=== PATIENT | female | born 1955 | race Caucasian/White ===

== ENCOUNTER 2018-03-10 06:12 | Day surgery (SDC) | payer BC, SELFPAY ==
[2018-03-10 06:30] VITALS: BP 159/89; PULSE 78; RESP 16; TEMP 36.2; O2SAT 98
[2018-03-10] MEDS: Povidone-Iodine Soln. 118 ML BTL TP (06:54)
[2018-03-10] MEDS: Lactated Ringers 1,000 ML 80 ML IV (07:24)
[2018-03-10] MEDS: Lidocaine 1% Pres-Free 5 ML VIAL (07:41)
[2018-03-10] MEDS: Bupivacaine 0.5% Pres-Free 30 ML VIAL (07:41)
[2018-03-10] MEDS: Dexamethasone 4 MG/ML VIAL (08:46)
--- NOTE | 2018-03-10 08:55 | W.PM.DSUDISC ---
Discharge Plan Disposition Patient Disposition: HOME Condition: Good Discharge Details Reason For Visit: correction bunion and hammer toe left foot Attending Provider: Mario Gonzalez Primary Care Provider: Diony Poe Home Meds and New Rx's Prescriptions: No Action CBD oil 1 - 2 ea PO PRN RF: 0 ascorbic acid (vitamin C) [Vitamin C] 1,000 mg Tablet 1 g PO DAILY RF: 0 cholecalciferol (vitamin D3) [Vitamin D3] 2,000 unit Capsule 2,000 unit PO DAILY RF: 0 magnesium S-eirvdt-ylgxytmmwpp 42 mg (500 mg)- 250 mg Tablet Extended Release 1 tab PO DAILY RF: 0 Davinci Tri Mag 2 ea PO DAILY RF: 0 Bone Maximizer 2 ea PO DAILY RF: 0 Osteo Marcelino 2 ea PO DAILY RF: 0 Discharge Instructions Stand Alone Forms: Zully Instructions-DSU, David Muñoz (DSU) Equipment/Supplies: Partial Weight Bearing Crutches Activity:: Elevate Remove Dressings/Wound Care:: Do Not Remove Shower/Bathe:: Cover Diet:: As Tolerated DS: Diagnosis Discharge Diagnosis (1) Hallux valgus (acquired), left foot: Start date: 03/10/18 Start time: 08:55 Status: Acute Asessment and Plan: s/p niranjan type bunionectomy, arthroplasty 2nd toe all to the left foot (2) Hammer toe of second toe of left foot: Start date: 03/10/18 Start time: 08:56 Status: Acute Asessment and Plan: s/p arthroplasty with 0.045 K-wire
[2018-03-10] MEDS: Ibuprofen 600 MG TAB PO (09:24)
[2018-03-10 09:30] VITALS: BP 115/67; PULSE 70; RESP 14; TEMP 35.2; O2SAT 96
--- NOTE | 2018-03-10 09:51 | ROE_ITS ---
DATE OF PROCEDURE: March 10, 2018 PREOPERATIVE DIAGNOSES: 1. Symptomatic left hallux abductovalgus deformity. 2. Symptomatic left second hammertoe deformity. POSTOPERATIVE DIAGNOSES: Same. PROCEDURE: 1. Dwight-type bunionectomy; internal screw fixation 2.7 mm 16 and 18 mm in length. 2. Arthroplasty left second toe with a .045 K-Wire. SURGEON: Mario Gonzalez D.P.M. ANESTHESIA: Monitored Anesthesia Care with local block of the first and second rays utilizing a tota l of 9 cc's 0.5% Marcaine plain and 5 mg Lidocaine 1% plain. ANESTHESIA PROVIDER: Kay Ames CRNA OPERATIVE INDICATIONS: 62-year-old female with increasing pain associated with a left bunion and ham mertoe interfering with shoe gear, daily activities. She has tried wider shoes and various padding w ithout success. She is proceeding with surgical repair. She is aware of potential risks and complic ations pertaining to pain, scarring, infection, overcorrection, undercorrection, stiffness of the bunny nt, malunion, nonunion, delayed union of the osteotomy, difficulty with the hardware potentially requ iring revisional procedures. Informed consent has been obtained. No promises made to the final outc ome of surgery. REPORT OF OPERATION: Cristine was brought to the operative suite, placed in the supine position, where the left foot was prepped and draped in the usual sterile podiatric fashion. Anesthesia being obtai garrett, the left foot was exsanguinated and a well-padded ankle tourniquet inflated 250 mmHg. Attention was directed to the first MPJ where a 5 cm incision was made medial to the EHL tendon. The incision was deepened in controlled depth fashion; hemostasis acquired through electrocautery as nee ded. Dissection was carried down to the joint capsule. Significant lateral contracture of the joint is appreciated. With a #15 scalpel, a lateral capsulotomy, adductor tendon release, fibular sesamoi d mobilization was performed. Relaxation was appreciated. An inverted-L medial capsulotomy was perf ormed and the first metatarsal head delivered into the surgical wound. Significant degenerative roque ges are noted affecting the medial and medial dorsal aspect of the first metatarsal head and about 2 to 3 mm of the medial and medial dorsal aspect of the first metatarsal head. Otherwise the remaining cartilage appeared viable if not thin. With power instrumentation the medial hyperostosis and dorsa l hyperostosis was resected. Offset V-osteotomy was then performed through the first metatarsal head . The metatarsal head was manipulated, translocated laterally and impacted. Good correction of the deformity was noted. Fixation was achieved with two Synthes 2.7 cortical screws, 16 and 18 mm in hilario h. The medial shelf was resected. All rough and bony edges rasped smooth. Copious irrigation was performed. The medial capsule was repaired, after performing a medial capsulorrhaphy, with #3-0 Mike ryl. The subcutaneous layer was repaired with #3-0 Vicryl, then #4-0 Vicryl and the subcuticular lay er was closed with continuous running suture #4-0 Monocryl. Attention was now directed to the second toe, where two converging semi-elliptical incisions were prema juan dorsally over the PIPJ. A skin wedge was resected. Soft tissue mobilization was performed. A t ransverse tenotomy capsulotomy performed at the PIPJ level. With a #15 scalpel medial and lateral co llaterals were released and the head of the proximal phalanx delivered into the wound. Mild degenera tive changes of the head appreciated; hypertrophy noted. With double-action bone-cutting forceps the head was resected at its surgical neck. All rough and bony edges were rasped smooth. Kelikian pus h-up test revealed a rectus second toe. Irrigation was performed. The second toe was pinned with a .045 K-Wire in retrograde fashion. An extensor tendonorrhaphy was performed and the extensor tendon repaired end-to-end with #3-0 Vicryl. The skin was then closed with simple interrupted suture #4-0 N chellyon. Four milligrams of Dexamethasone Phosphate infused between the two wounds. Half-inch Steri-S trips over Mastisol was applied to the bunion incision; Xeroform applied; gauze fluff compression cory ssings applied. The tourniquet was released at 56 minutes with vascularity returning immediately to all toes. Cristine left the OR with vital signs stable, vascular status intact. She will be followed by me in the office next week. Sharp and sponge counts were correct. cc: Diony Poe M.D.
--- NOTE | 2018-03-10 10:39 | W.PM.DSUDISC ---
Discharge Plan Disposition Patient Disposition: HOME Condition: Good Discharge Details Reason For Visit: correction bunion and hammer toe left foot Attending Provider: Mario Gonzalez Primary Care Provider: Diony Poe Home Meds and New Rx's Prescriptions: Continued CBD oil 1 - 2 ea PO PRN RF: 0 ascorbic acid (vitamin C) [Vitamin C] 1,000 mg Tablet 1 g PO DAILY RF: 0 cholecalciferol (vitamin D3) [Vitamin D3] 2,000 unit Capsule 2,000 unit PO DAILY RF: 0 magnesium X-vhqpxu-cizdprpxvcm 42 mg (500 mg)- 250 mg Tablet Extended Release 1 tab PO DAILY RF: 0 Davinci Tri Mag 2 ea PO DAILY RF: 0 Bone Maximizer 2 ea PO DAILY RF: 0 Osteo Marcelino 2 ea PO DAILY RF: 0 No Action hydrocodone-acetaminophen [[place]] 5-325 mg Tablet 1 tab PO .Q4-6HR PRN (Reason: Pain) RF: 0 ibuprofen 600 mg Tablet 600 mg PO .Q6HR PRN (Reason: Pain) RF: 0 Discharge Instructions Stand Alone Forms: Zully Instructions-DSU, David Muñoz (DSU) Equipment/Supplies: Partial Weight Bearing Crutches Activity:: Elevate Remove Dressings/Wound Care:: Do Not Remove Shower/Bathe:: Cover Diet:: As Tolerated Discharge Orders Discharge Orders: Discharge Order (Routine); Ordered 03/10/18 Ordered By: Mario Gonzalez
--- NOTE | 2018-03-10 10:43 | PDOC.DSDIS_ITS ---
Discharge Plan Disposition Patient Disposition: HOME Condition: Good Discharge Details Reason For Visit: correction bunion and hammer toe left foot Attending Provider: Mario Gonzalez Primary Care Provider: Diony Poe Home Meds and New Rx's Prescriptions: Continued CBD oil 1 - 2 ea PO PRN RF: 0 ascorbic acid (vitamin C) [Vitamin C] 1,000 mg Tablet 1 g PO DAILY RF: 0 cholecalciferol (vitamin D3) [Vitamin D3] 2,000 unit Capsule 2,000 unit PO DAILY RF: 0 magnesium W-fvootw-izavhhvbhpm 42 mg (500 mg)- 250 mg Tablet Extended Release 1 tab PO DAILY RF: 0 Davinci Tri Mag 2 ea PO DAILY RF: 0 Bone Maximizer 2 ea PO DAILY RF: 0 Osteo Marcelino 2 ea PO DAILY RF: 0 No Action hydrocodone-acetaminophen [[place]] 5-325 mg Tablet 1 tab PO .Q4-6HR PRN (Reason: Pain) RF: 0 ibuprofen 600 mg Tablet 600 mg PO .Q6HR PRN (Reason: Pain) RF: 0 Discharge Instructions Stand Alone Forms: Zully Instructions-DSU, David Muñoz (DSU) Equipment/Supplies: Partial Weight Bearing Crutches Activity:: Elevate Remove Dressings/Wound Care:: Do Not Remove Shower/Bathe:: Cover Diet:: As Tolerated Discharge Orders Discharge Orders: Discharge Order (Routine); Ordered 03/10/18 Ordered By: Mario Gonzalez
== END 2018-03-10 10:25 | disposition home or self-care (01) ==
PROVIDERS: PCP Internal Medicine; Visit Provider Podiatrist
PROC: (CPT 28292; principal; 2018-03-10 07:30)
PROC: (CPT 28296; 2018-03-10 07:30)
DX: M20.12 Hallux valgus (acquired), left foot (principal); M20.42 Other hammer toe(s) (acquired), left foot; M21.612 Bunion of left foot; M25.572 Pain in left ankle and joints of left foot; I10 Essential (primary) hypertension; E66.9 Obesity, unspecified
CPT/HCPCS: 28296; 28285; E0114; J0690; J1100; J1885; J2405

== ENCOUNTER 2018-05-31 19:16 | Outpatient (REF) | payer BC, SELFPAY ==
[2018-05-31 19:26] LABS: Bilirubin Negative (Negative); Blood Negative (Negative); Clarity Clear; Glucose Negative (Negative); Ketones Negative (Negative); Leukocyte Esterase Negative (Negative); Nitrite Negative (Negative); Urobilinogen 0.2 EU/dL (Up TO 0.2)
== END 2018-05-31 19:36 ==
LOC: LBN 19:16
PROVIDERS: PCP Nurse Practitioner Family; Visit Provider Nurse Practitioner Family
DX: I10 Essential (primary) hypertension (principal)
CPT/HCPCS: 81003

== ENCOUNTER 2018-09-28 00:32 | Outpatient (CLI) | payer BC, SELFPAY ==
[2018-09-28 10:10] LABS: BUN 6 mg/dL (7-18); CREATININE 0.62 mg/dL (0.55-1.02); Calcium 9.2 mg/dL (8.5-10.1); Calculated LDL 81 mg/dL; Chloride 95 mmol/L (98-107); Cholesterol 190 mg/dL (50-200); Glucose 88 mg/dL (70-100); HDL Cholesterol 100 mg/dL (40-60); Potassium 4.3 mmol/L (3.5-5.1); Sodium 131 mmol/L (136-145); Triglyceride 46 mg/dL (30-150)
== END 2018-09-28 00:52 ==
PROVIDERS: PCP Nurse Practitioner Family; Visit Provider Nurse Practitioner Family
DX: E78.5 Hyperlipidemia, unspecified (principal); I10 Essential (primary) hypertension
CPT/HCPCS: 36415; 80048; 80061; 83721

== ENCOUNTER 2018-10-24 15:14 | Outpatient (CLI) | payer BC, SELFPAY ==
[2018-10-24 19:40] LABS: Sodium 128 mmol/L (136-145)
== END 2018-10-24 15:34 ==
PROVIDERS: PCP Nurse Practitioner Family; Visit Provider Nurse Practitioner Family
DX: E87.1 Hypo-osmolality and hyponatremia (principal)
CPT/HCPCS: 36415; 84295

== ENCOUNTER 2018-11-03 01:37 | Outpatient (CLI) | payer BC, SELFPAY ==
--- NOTE | 2018-11-03 15:09 | DI.MAMMO_ITS ---
EXAM: MG MAMMO SCREENING CLINICAL HISTORY: screening, Z12.39. TECHNIQUE: Mammograms were interpreted according to the usual protocol including computer analysis w ith CAD system, tomosynthesis and C-view imaging. COMPARISON: No exams were available for comparison FINDINGS: The breast tissue is heterogeneously radiodense, which lowers the sensitivity of the study. There ar e no suspicious calcifications or evidence of a dominant mass. Further assessment with a craniocauda d compression spot film of the left breast and ultrasound is recommended. IMPRESSION: This gets a category 0, breast density category 3
== END 2018-11-03 01:57 ==
PROVIDERS: PCP Nurse Practitioner Family; Visit Provider Nurse Practitioner Family
DX: Z12.31 Encounter for screening mammogram for malignant neoplasm of breast (principal); R92.8 Other abnormal and inconclusive findings on diagnostic imaging of breast
CPT/HCPCS: 36415; 77063; 77067; 84295

== ENCOUNTER 2018-11-13 10:39 | Outpatient (CLI) | payer BC, SELFPAY ==
[2018-11-13 12:49] LABS: Sodium 135 mmol/L (136-145)
== END 2018-11-13 10:59 ==
PROVIDERS: PCP Nurse Practitioner Family; Visit Provider Nurse Practitioner Family
DX: E87.1 Hypo-osmolality and hyponatremia (principal)
CPT/HCPCS: 84295

== ENCOUNTER 2018-11-21 01:35 | Outpatient (CLI) | payer BC, SELFPAY ==
--- NOTE | 2018-11-21 09:44 | DI.US_ITS ---
EXAM: LEFT BREAST ADDITIONAL VIEWS AND US BREAST LT LIMITED CLINICAL HISTORY: LT BREAST NEW AREA OF NODULARITY SEEN LATERALLY. TECHNIQUE: Mammograms were interpreted according to the usual protocol including computer analysis w [employer] CAD system, tomosynthesis and C-view imaging. COMPRESSION VIEWS TOMOGRAPHY WERE PERFORMED OF THE UPPER AND OUTER QUADRANT. Ultrasound performed using standard protocol. COMPARISON: Comparison is made with exams from 2013 through 2018. FINDINGS: There is persistence of circumscribed nodularity. There are no suspicious features or associated gege rocalcifications. Ultrasound shows a smoothly marginated hypoechoic nodule measuring 9 millimeters. There is a small f atty hilum. The findings are consistent with an intramammary lymph node. IMPRESSION: Category 2, negative mammogram with benign findings. Yearly screening mammography is recommended. BI-RADS Cat 2 - Benign Findings. Breast Density - Category C - Heterogeneously dense.
--- NOTE | 2018-11-21 21:31 | DI.MAMMO_ITS ---
EXAM: LEFT BREAST ADDITIONAL VIEWS AND US BREAST LT LIMITED CLINICAL HISTORY: LT BREAST NEW AREA OF NODULARITY SEEN LATERALLY. TECHNIQUE: Mammograms were interpreted according to the usual protocol including computer analysis w [employer] CAD system, tomosynthesis and C-view imaging. COMPRESSION VIEWS TOMOGRAPHY WERE PERFORMED OF THE UPPER AND OUTER QUADRANT. Ultrasound performed using standard protocol. COMPARISON: Comparison is made with exams from 2013 through 2018. FINDINGS: There is persistence of circumscribed nodularity. There are no suspicious features or associated gege rocalcifications. Ultrasound shows a smoothly marginated hypoechoic nodule measuring 9 millimeters. There is a small f atty hilum. The findings are consistent with an intramammary lymph node. IMPRESSION: Category 2, negative mammogram with benign findings. Yearly screening mammography is recommended. BI-RADS Cat 2 - Benign Findings. Breast Density - Category C - Heterogeneously dense.
== END 2018-11-21 01:55 ==
PROVIDERS: PCP Nurse Practitioner Family; Visit Provider Nurse Practitioner Family
DX: Z12.31 Encounter for screening mammogram for malignant neoplasm of breast (principal); R92.8 Other abnormal and inconclusive findings on diagnostic imaging of breast; N60.82 Other benign mammary dysplasias of left breast
CPT/HCPCS: 76642; 77063; 77067

== ENCOUNTER 2020-05-08 01:33 | Outpatient (CLI) | payer BC, SELFPAY ==
--- NOTE | 2020-05-08 16:19 | DI.MAMMO_ITS ---
EXAM: MG MAMMO SCREENING CLINICAL HISTORY: SCREENING, Z12.39. TECHNIQUE: Bilateral full field digital CC and MLO mammographic images were obtained with 3D tomosyn thesis and utilizing computer aided detection (CAD). COMPARISON: Prior mammograms dating back to 2010, the most recent being October 2018. Diagnostic images November 2018 also reviewed.. FINDINGS: Fibroglandular tissue is again noted be moderately dense, this decreasing the sensitivity mammogram f or finding hidden underlying lesions. Previously described nodule in the left breast is actually less evident on the present study. There are no new spiculated masses nor malignant-appearing microcalcification groups in either breast . There is no new architectural distortion or skin thickening-traction. IMPRESSION: Dense fibroglandular tissue. No obvious radiographic evidence of malignancy. BI-RADS Category 1 - Negative Breast Density - Category C - Heterogeneously dense Breast density Category C or D implies that the patient has dense breast tissue. Dense breast tissue can make it harder to find cancer on a mammogram. Dense breast tissue is also associated with an incr eased risk of breast cancer. This information about the result of the mammogram report was provided to the patient to raise their awareness. Use this report when you speak with the patient about their risks for breast cancer, which includes their family history. At that time, you may recommend additional screening tests (Ultrasoun d or MRI) as these tests may add significant information. A negative radiographic report should not delay biopsy if a dominant or clinically suspicious mass is present. Up to ten percent of cancers are not identified on mammography. A negative report may reinforce clinical impression. Adenosis and dense breasts may obscure an underlying neoplasm. False positive reports average 6 to 10%. Patient will receive a letter notifying them of these results.
== END 2020-05-08 01:53 ==
PROVIDERS: PCP Nurse Practitioner Family; Visit Provider Internal Medicine
DX: Z12.31 Encounter for screening mammogram for malignant neoplasm of breast (principal)
CPT/HCPCS: 77063; 77067

== ENCOUNTER 2021-11-11 10:10 | Outpatient (REF) | payer OTHER, SELFPAY ==
[2021-11-11 16:55] LABS: HGB 14.3 g/dL (11.2-15.7); MCH 32.1 pg (27.0-33.0); MCHC 35.8 % (32.0-36.0); MCV 90 fL (80-95); MPV 10.3 fL (8.0-11.0); Platelet Count 368 10^3/uL (130-400); RBC 4.45 10^6/uL (3.93-5.22); RDW 11.8 % (11.7-14.6); RDW-SD 38.9 fL; WBC 4.44 10^3/uL (4.4-10.8)
[2021-11-11 17:06] LABS: ALT 28 U/L (14-59); AST 24 U/L (15-37); Albumin 4.2 g/dL (3.4-5.0); Alkaline Phosphatase 95 U/L (46-116); Anion Gap 7.7 mmol/L (3-11); BUN 6 mg/dL (7-18); Bilirubin, Total 0.7 mg/dL (0.2-1.0); CO2 27.3 mmol/L (21.0-32.0); CREATININE 0.6 mg/dL (0.55-1.02); Calcium 9.6 mg/dL (8.5-10.1); Calculated LDL 84 mg/dL (<100); Chloride 89 mmol/L (98-107); Cholesterol 224 mg/dL (<200); Estimated GFR 97.71 (mL/min/1.73m2); Glucose 100 mg/dL (74-106); HDL Cholesterol 132 mg/dL (40-60); Potassium 5.2 mmol/L (3.5-5.1); Total Protein 7.8 g/dL (6.4-8.2); Triglyceride 44 mg/dL (<150)
[2021-11-11 17:26] LABS: Sodium 124 mmol/L (136-145)
== END 2021-11-11 10:11 | disposition home or self-care (01) ==
LOC: NCHCN 10:10
PROVIDERS: PCP Nurse Practitioner Family; Visit Provider Nurse Practitioner Family
DX: R03.0 Elevated blood-pressure reading, without diagnosis of hypertension (principal); E66.9 Obesity, unspecified
CPT/HCPCS: 80053; 80061; 85027

== ENCOUNTER 2021-11-12 15:15 | Outpatient (REF) | payer OTHER, SELFPAY ==
[2021-11-12 15:53] LABS: Sodium, Urine 6 mmol/L
[2021-11-12 21:44] LABS: Osmolality, Urine 234 mOsm/kg (150-1,150)
== END 2021-11-12 15:16 | disposition home or self-care (01) ==
LOC: NCHCN 15:15
PROVIDERS: PCP Nurse Practitioner Family; Visit Provider Nurse Practitioner Family
DX: E87.1 Hypo-osmolality and hyponatremia (principal)
CPT/HCPCS: 83935; 84300

== ENCOUNTER 2021-11-13 10:55 | Outpatient (REF) | payer OTHER, SELFPAY ==
[2021-11-13 08:15] LABS: Anion Gap 7.2 mmol/L (3-11); BUN 7 mg/dL (7-18); CO2 27.8 mmol/L (21.0-32.0); CREATININE 0.6 mg/dL (0.55-1.02); Calcium 9.5 mg/dL (8.5-10.1); Chloride 95 mmol/L (98-107); Estimated GFR 97.71 (mL/min/1.73m2); Glucose 118 mg/dL (74-106); Potassium 4.8 mmol/L (3.5-5.1); Sodium 130 mmol/L (136-145)
== END 2021-11-13 10:56 | disposition home or self-care (01) ==
LOC: NCHCN 10:55
PROVIDERS: PCP Nurse Practitioner Family; Visit Provider Nurse Practitioner Family
DX: E87.1 Hypo-osmolality and hyponatremia (principal)
CPT/HCPCS: 80048

== ENCOUNTER 2021-12-03 13:48 | Outpatient (REF) | payer OTHER, SELFPAY ==
[2021-12-03 15:47] LABS: ALT 19 U/L (14-59); AST 18 U/L (15-37); Albumin 4.2 g/dL (3.4-5.0); Alkaline Phosphatase 89 U/L (46-116); Anion Gap 10.4 mmol/L (3-11); BUN 9 mg/dL (7-18); Bilirubin, Total 0.7 mg/dL (0.2-1.0); CO2 26.6 mmol/L (21.0-32.0); CREATININE 0.7 mg/dL (0.55-1.02); Calcium 9.4 mg/dL (8.5-10.1); Chloride 98 mmol/L (98-107); Estimated GFR 94.15 (mL/min/1.73m2); FREE T4 0.92 ng/dL (0.76-1.46); Glucose 94 mg/dL (74-106); Potassium 4.6 mmol/L (3.5-5.1); Sodium 135 mmol/L (136-145); TSH 0.66 uIU/mL (0.36-3.74); Total Protein 7.5 g/dL (6.4-8.2)
== END 2021-12-03 13:49 | disposition home or self-care (01) ==
LOC: NCHCN 13:48
PROVIDERS: PCP Nurse Practitioner Family; Visit Provider Internal Medicine
DX: R03.0 Elevated blood-pressure reading, without diagnosis of hypertension (principal); E87.1 Hypo-osmolality and hyponatremia; I79.0 Aneurysm of aorta in diseases classified elsewhere
CPT/HCPCS: 80053; 84439; 84443

== ENCOUNTER → 2021-12-09 01:58 | Outpatient (CLI) | payer OTHER, SELFPAY ==
--- NOTE | 2021-12-09 | DI.MAMMO_ITS ---
Exam(s) MAMMO SCREENING EXAM: MAMMO SCREENING CLINICAL HISTORY: SCREENING, Z12.39 TECHNIQUE: Bilateral full field digital CC and MLO mammographic images were obtained with 3D tomosyn thesis and utilizing computer aided detection (CAD). COMPARISON: Available for comparison. FINDINGS: Masses/Architectural Distortion: None seen. Microcalcifications: No suspicious pleomorphic-type are seen. Skin Thickening/Nipple Retraction: None. IMPRESSION: 1. No significant interval change with no specific features of malignancy noted. 2. Unless there is more urgent need, screening mammography is recommended, as per [employer] guidelines. BI-RADS Category 1 - Negative Breast Density - Category C - Heterogeneously dense Breast density category C or D implies that the patient has dense breast tissue. Dense breast tissue is very common and is not abnormal but dense breast tissue can make it harder to find cancer on a ma mmogram. Also, dense breast tissue may increase their breast cancer risk. This information about the result of the mammogram report was provided to the patient to raise their awareness. Use this report when you speak with the patient about their risks for breast cancer, which includes their family hist ory. At that time, you may recommend for more screening tests (Ultrasound or MRI) as they might be us eful based on their risk. A negative radiographic report should not delay biopsy if a dominant or clinically suspicious mass is present. Up to ten percent of cancers are not identified on mammography. A negative report may reinforce clinical impression. Adenosis and dense breasts may obscure an underlying neoplasm. False positive reports average 6 to 10%. Patient will receive a letter notifying them of these results.
== END ==
PROVIDERS: PCP Nurse Practitioner Family; Visit Provider Nurse Practitioner Family
DX: Z12.31 Encounter for screening mammogram for malignant neoplasm of breast (principal); R92.8 Other abnormal and inconclusive findings on diagnostic imaging of breast
CPT/HCPCS: 77063; 77067

== ENCOUNTER 2022-01-27 13:44 | Emergency (ER) | payer OTHER, SELFPAY ==
[2022-01-27 13:59] VITALS: BP 186/66; PULSE 76; RESP 18; TEMP 37.7; O2SAT 99
--- NOTE | 2022-01-27 14:15 | DI.RAD_ITS ---
Exam(s) XR SHOULDER LT COMPLETE 2+V EXAM: XR SHOULDER LT COMPLETE 2+V CLINICAL HISTORY: trauma. TECHNIQUE: 2D digital imaging was performed of the left shoulder. Four images were obtained. AP, G rashey, Y-view and axillary views were obtained. COMPARISON: No exams were available for comparison FINDINGS: BONES: There is an acute comminuted fracture of the proximal left humerus. The fracture involves the surgical neck with extension proximally involving the greater tuberosity. The fracture shows minima l displacement particularly the greater tuberosity component. No bony destructive lesion is seen. JOINTS: No dislocation present. Mild degenerative changes are seen at the acromioclavicular joint. SOFT TISSUE: Normal. IMPRESSION: Comminuted mildly displaced fracture involving the proximal humerus as described above. DATA REPOSITORY: RADIATION DOSE DELIVERED:
--- NOTE | 2022-01-27 16:16 | W.ED.GENAD ---
Discharge Plan Disposition Patient Disposition: Home Condition: Stable Discharge Details Chief Complaint: Orthopedic Clinical Impression: Fracture of proximal humerus Primary Care Provider: Serenity Amezquita ED Provider: Chava Herrera Home Meds and New Rx's Prescriptions: No Action vitamin K2 40 mcg tablet 100 mcg PO DAILY Label Comments: MK-7 Shingrix (PF) 50 mcg/0.5 mL suspension for reconstitution 50 mcg IM .COMPLEX Qty: 1 1RF Rx Instructions: 50 mcg IM administered as a 2-dose series at 0 and 2 to 6 months vitamins B1 B6 B12 Liquid 5 ml PO DAILY amlodipine 5 mg tablet 5 mg PO DAILY Qty: 90 3RF lisinopril 10 mg tablet 10 mg PO DAILY Qty: 90 3RF ascorbic acid (vitamin C) [Vitamin C] 1,000 mg Tablet 1 g PO DAILY cholecalciferol (vitamin D3) [Vitamin D3] 2,000 unit Capsule 2,000 unit PO DAILY Davinci Tri Mag 2 ea PO DAILY Discharge Instructions Instructions: Proximal Humerus Fracture (ED) Additional Instructions: Please follow-up with orthopedic surgical team. Please use sling as instructed. Please return to the emergency department for any worsening symptoms. Medical Decision Making 66-year-old female presents after mechanical fall from standing, fell on the left side, pain to left shoulder, no other injuries, holding left upper extremity abducted to side, range of motion of shoulder limited by pain, no skin tenting or external signs of trauma, no deformity, neurovascular exam of limb intact, strong radial pulse, median radial and ulnar nerve distribution sensory exam intact, flexion extension of fingers intact, flexion extension of wrist intact, flexion and extension at elbow intact, warm well perfused extremity. Evidence of proximal humeral fracture on x-ray. Will place patient in sling. We will control pain with anti-inflammatory/analgesia. Patient be given close follow-up with orthopedic surgery. Home care instructions given. HPI General Date/Time Provider Initiated Documentation: 01/27/22 15:42. HPI Narrative: 66-year-old female presents after fall on ice on her left side, pain to her left shoulder. No other injuries. Related Data Home Medications Medication Instructions Recorded Confirmed Davinci Tri Mag 2 ea PO DAILY 03/09/18 05/31/18 ascorbic acid (vitamin C) 1,000 mg 1 g PO DAILY 03/09/18 05/31/18 tablet (Vitamin C) cholecalciferol (vitamin D3) 50 2,000 unit PO DAILY 03/09/18 05/31/18 mcg (2,000 unit) capsule (Vitamin D3) vitamin K2 40 mcg tablet 100 mcg PO DAILY 04/28/18 05/31/18 amlodipine 5 mg tablet 5 mg PO DAILY #90 tab-caps 10/09/18 10/09/18 vitamins B1 B6 B12 oral liquid 5 ml PO DAILY 10/09/18 lisinopril 10 mg tablet 10 mg PO DAILY #90 tab-caps 11/06/18 varicella-zoster glycoE [id number] 50 mcg IM .COMPLEX #1 ea 11/13/18 11/13/18 adj(PF) 50 mcg/0.5 mL IM susp, kit (Shingrix (PF)) Previous Rx's Medication Instructions Recorded amlodipine 5 mg tablet 5 mg PO DAILY #90 tab-caps 10/09/18 lisinopril 10 mg tablet 10 mg PO DAILY #90 tab-caps 11/06/18 varicella-zoster glycoE [id number] 50 mcg IM .COMPLEX #1 ea 11/13/18 adj(PF) 50 mcg/0.5 mL IM susp, kit (Shingrix (PF)) Allergies Allergy/AdvReac Type Severity Reaction Status Date / Time No Known Allergies Allergy Unverified 01/27/22 14:18 General Stated Complaint: Orthopedic HARSH: 4 Review of Systems Narrative: Review of Systems Constitutional: negative Eyes: negative ENT: negative Cardiovascular: negative Respiratory: negative Gastrointestinal: negative : negative Musculoskeletal: Shoulder pain Skin: negative Neurologic: negative Psych: negative PFSH All Active Problems (Updated 01/27/22 @ 16:22 by Chava Herrera MD) Fracture of proximal humerus (Acute) Hyperlipidemia, unspecified (Chronic) 09/2018 labs: 10-year ASCVD risk = ~6.7% --> no statin indicated at this time Immunization not carried out because of patient refusal (Chronic) Osteoporosis (Chronic) Pt declines Rx treatment Anxiety disorder (Chronic) Hypertension (Chronic) Medical History (Updated 01/27/22 @ 16:22 by Chava Herrera MD) Hammer toe of second toe of left foot S/p bunionectomy 02/2018 Surgical History meniscus repair Status post bunionectomy (~03/10/18) 03/10/2018: left Family History Sister Breast cancer Osteoporosis Brother High cholesterol Brother Brain cancer Father Malignant neoplasm metastatic to kidney Hypertension Social History Smoking/Tobacco Use Status: Never Smoking risk assessment performed?: Yes Alcohol Intake: current Alcohol Intake frequency: a few times a week Drug use: Never Substance use type: does not use Adopted: No Caregiver/Support person: No Foster care: No Household members: spouse Housing: house Communication Needs: None Do you need help understanding health information?: Rarely 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 Pets and animals: No Sexually active: Yes Do you think of yourself as: straight/heterosexual Current gender identity: female Other: 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 What is your relationship status?: How often do you talk on the phone with friends or family?: three or more times per week How often do you get together with friends or relatives?: three or more times per week How often do you attend yarsani or restoration services?: 1-3 times per year Do you belong to any clubs or organized social groups?: no Panel score (0-1 are the most socially isolated patients): 2 What type of physical activity do you participate in: walking Duration: 45-60 minutes/day Frequency: daily Jenifer/Mandaeism: Baptism Special jenifer needs: No Agree to transfusion: Yes Seatbelt use: always Helmet use: Yes Drive intox or ride w/intox 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 driver: No Water heater temp set <120 deg: Yes Working smoke detector in home: Yes Fire extinguisher in home: Yes Carbon monox detector in home: No (Getting new one) Firearms in home: Yes Firearms unloaded and locked: Yes Do you feel safe at home: Yes Do you feel safe in your relationship?: Yes Victim of physical abuse: No Victim of emotional abuse: No Victim of sexual abuse: No Would you like helpful sources: No Additional Social history: VEGAN diet Female Reproductive History Menstrual Menopause type: natural Exam Narrative Exam Narrative: Physical Examination General: alert, awake, cooperative, resting comfortably, no acute distress HEENT: normocephalic, atraumatic; PERRL, EOM intact, conjunctiva normal; no nasal discharge; moist mucous membranes, oral and pharyngeal mucosa normal, tolerating secretions Neck: supple, trachea midline; full ROM Chest: normal to inspection Respiratory: normal respiratory effort, speaking in full sentences, clear to auscultation, no wheezing, rales or rhonchi Cardiac: regular rate, regular rhythm, S1S2 intact, no murmurs rubs or gallops GI: abdomen soft, non-tender, non-distended; no palpable mass or hepatosplenomegaly Skin: no lesions, rashes or trauma appreciated Neuro: AAOx3, normal speech, moving all extremities Extremities: Holding left upper extremity abducted to side, decreased range of motion at shoulder due to pain, no palpable deformity, no skin tenting, patient has strong radial pulse, median radial and ulnar nerve distribution sensory exam intact, range of motion at elbow wrist and hand intact with full strength Psych: Appropriate mood and affect Course Vital Signs Vital signs: Vital Signs Temperature 37.7 C H 01/27/22 13:59 Pulse 76 01/27/22 13:59 Respiratory Rate 18 01/27/22 13:59 Blood Pressure 186/66 H 01/27/22 13:59 Pulse Oximetry 99 01/27/22 13:59 Temperature 37.7 C H 01/27/22 13:59 Temperature Source Temporal Artery Scan 01/27/22 13:59 Pulse 76 01/27/22 13:59 Respiratory Rate 18 01/27/22 13:59 Respiratory Effort Non-Labored 01/27/22 14:15 Blood Pressure 186/66 H 01/27/22 13:59 Blood Pressure Position Sitting 01/27/22 13:59 Pulse Oximetry 99 01/27/22 13:59 Oxygen Delivery Method Room Air 01/27/22 13:59 Oxygen Flow Rate 0 01/27/22 13:59 Pain Level 7 01/27/22 13:59
[2022-01-27] MEDS: Acetaminophen 325 MG TAB 650 MG PO (16:39)
[2022-01-27] MEDS: Ketorolac 15 MG/ML VIAL IM (16:40)
[2022-01-27] MEDS: oxyCODONE 5 mg/Acetaminophen 325 mg TAB 2 TAB PO (17:06)
== END 2022-01-27 17:10 | disposition home or self-care (01) ==
PROVIDERS: Emergency Provider Emergency Medicine; PCP Family Medicine
DX: S42.202A Unspecified fracture of upper end of left humerus, initial encounter for closed fracture (principal); W00.9XXA Unspecified fall due to ice and snow, initial encounter
CPT/HCPCS: 96372; 99284; 73030; J1885

== ENCOUNTER 2022-02-02 09:33 | Outpatient (CLI) | payer OTHER, SELFPAY ==
--- NOTE | 2022-02-02 09:30 | DI.RAD_ITS ---
Exam(s) XR SHOULDER LT COMPLETE 2+V EXAM: XR SHOULDER LT COMPLETE 2+V CLINICAL HISTORY: left proximal humerus fx f/u. TECHNIQUE: 2D digital imaging was performed. COMPARISON: X-ray 01/27/2022 FINDINGS: Two views: Again noted is a previously described humeral head fracture which also involves the greater tuberosit y. There is no further displacement. Appearance is unchanged from 01/27/2022. No additional fractu res evident. IMPRESSION: No change from 01/27/2022. DATA REPOSITORY: RADIATION DOSE DELIVERED:
== END 2022-02-02 09:34 | disposition home or self-care (01) ==
LOC: DIORS 09:34
PROVIDERS: PCP Family Medicine; Referring Provider Family Medicine; Visit Provider Student in an Organized Health Care Education/Training Program
DX: S42.202D Unspecified fracture of upper end of left humerus, subsequent encounter for fracture with routine healing (principal); X58.XXXD Exposure to other specified factors, subsequent encounter
CPT/HCPCS: 73030

== ENCOUNTER 2022-02-16 09:53 | Outpatient (CLI) | payer OTHER, SELFPAY ==
--- NOTE | 2022-02-16 09:30 | DI.RAD_ITS ---
Exam(s) XR SHOULDER LT COMPLETE 2+V EXAM: XR SHOULDER LT COMPLETE 2+V CLINICAL HISTORY: left humerus fx f/u. TECHNIQUE: 2D digital imaging was performed. COMPARISON: CR XR SHOULDER LT COMPLETE 2+V from 02/02/2022 FINDINGS: Three views: There is continued unchanged appearance of the humeral head-neck fracture site which also involves th e greater tuberosity. Fracture lines are still evident but there is no further displacement of the f racture fragments. No dislocation of the glenohumeral joint. AC joint intact. IMPRESSION: DATA REPOSITORY: RADIATION DOSE DELIVERED:
== END 2022-02-16 09:54 | disposition home or self-care (01) ==
LOC: DIORS 09:54
PROVIDERS: PCP Family Medicine; Referring Provider Family Medicine; Visit Provider Student in an Organized Health Care Education/Training Program
DX: S42.292D Other displaced fracture of upper end of left humerus, subsequent encounter for fracture with routine healing; X58.XXXD Exposure to other specified factors, subsequent encounter
CPT/HCPCS: 73030

== ENCOUNTER 2022-03-09 13:24 | Outpatient (CLI) | payer OTHER, SELFPAY ==
--- NOTE | 2022-03-09 13:15 | DI.RAD_ITS ---
Exam(s) XR SHOULDER LT COMPLETE 2+V EXAM: XR SHOULDER LT COMPLETE 2+V CLINICAL HISTORY: left humerus fx f/u. TECHNIQUE: 2D digital imaging was performed. COMPARISON: CR XR SHOULDER LT COMPLETE 2+V from 02/16/2022 FINDINGS: Two views Again noted is the described humeral head-neck fracture which also involves the greater tuberosity. No further displacement. No further impaction. Glenohumeral joint not dislocated. IMPRESSION: Stable appearance with some mild further healing. DATA REPOSITORY: RADIATION DOSE DELIVERED:
== END 2022-03-09 13:25 | disposition home or self-care (01) ==
LOC: DIORS 13:24
PROVIDERS: PCP Family Medicine; Referring Provider Family Medicine; Visit Provider Student in an Organized Health Care Education/Training Program
DX: S42.292D Other displaced fracture of upper end of left humerus, subsequent encounter for fracture with routine healing (principal); X58.XXXD Exposure to other specified factors, subsequent encounter
CPT/HCPCS: 73030

== ENCOUNTER 2022-04-27 13:38 | Outpatient (CLI) | payer OTHER, SELFPAY ==
--- NOTE | 2022-04-27 13:00 | DI.RAD_ITS ---
Exam(s) XR SHOULDER LT COMPLETE 2+V EXAM: XR SHOULDER LT COMPLETE 2+V INDICATION: humerus fx f/u. COMPARISON: CR XR SHOULDER LT COMPLETE 2+V from 02/16/2022 CR XR SHOULDER LT COMPLETE 2+V from 03/09/2022 TECHNIQUE: 2D digital imaging was performed. Two views. FINDINGS: There has been continued healing of the previously noted humeral head fracture. No new abnormalities are seen. DATA REPOSITORY: RADIATION DOSE DELIVERED:
== END 2022-04-27 13:39 | disposition home or self-care (01) ==
LOC: DIORS 13:38
PROVIDERS: PCP Family Medicine; Referring Provider Family Medicine; Visit Provider Student in an Organized Health Care Education/Training Program
DX: S42.292D Other displaced fracture of upper end of left humerus, subsequent encounter for fracture with routine healing (principal); X58.XXXD Exposure to other specified factors, subsequent encounter
CPT/HCPCS: 73030

== ENCOUNTER 2022-10-05 15:21 | Outpatient (REF) | payer OTHER, SELFPAY ==
[2022-10-05 21:08] LABS: Anion Gap 8.3 mmol/L (3-11); BUN 9 mg/dL (7-18); CO2 27.7 mmol/L (21.0-32.0); CREATININE 0.6 mg/dL (0.55-1.02); Calcium 9.3 mg/dL (8.5-10.1); Chloride 94 mmol/L (98-107); Glucose 155 mg/dL (74-106); Potassium 4.5 mmol/L (3.5-5.1); Sodium 130 mmol/L (136-145)
== END 2022-10-05 15:22 | disposition home or self-care (01) ==
LOC: NCHCN 15:21
PROVIDERS: PCP Family Medicine; Visit Provider Internal Medicine
DX: R03.0 Elevated blood-pressure reading, without diagnosis of hypertension (principal); E87.1 Hypo-osmolality and hyponatremia; R42 Dizziness and giddiness; M81.0 Age-related osteoporosis without current pathological fracture
CPT/HCPCS: 80048

== ENCOUNTER 2022-10-14 01:24 | Outpatient (RCR) | payer OTHER, SELFPAY ==
[2022-10-14] MEDS: Normal Saline Flush 10 ML SYR IVP (07:18)
[2022-10-14] MEDS: Cosyntropin 0.25 MG VIAL IVP (07:18)
[2022-10-14 20:31] LABS: Cortisol (Baseline) 17 ug/dL (4-23)
== END 2022-10-14 23:59 | disposition home or self-care (01) ==
LOC: INF 01:24
PROVIDERS: PCP Family Medicine; Visit Provider Internal Medicine
DX: E87.1 Hypo-osmolality and hyponatremia (principal)
CPT/HCPCS: 36415; 80400; 96374; J0834

== ENCOUNTER 2022-12-23 18:37 | Outpatient (CLI) | payer OTHER, SELFPAY ==
--- NOTE | 2022-12-23 13:41 | DI.RAD_ITS ---
Exam(s) XR HAND RT LIMITED EXAM: XR HAND RT LIMITED INDICATION: RIGHT HAND PAIN. COMPARISON: DX Hand, Min Of Three Views Right from 12/15/2022 TECHNIQUE: 2D digital imaging was performed. Two views. FINDINGS: There has been no change in the alignment of the distal 5th metacarpal fracture. No new abnormalitie s are seen. DATA REPOSITORY: RADIATION DOSE DELIVERED:
== END 2022-12-23 18:38 | disposition home or self-care (01) ==
LOC: DIORS 18:38
PROVIDERS: PCP Family Medicine; Visit Provider Physician Assistant
DX: S62.306D Unspecified fracture of fifth metacarpal bone, right hand, subsequent encounter for fracture with routine healing (principal); X58.XXXD Exposure to other specified factors, subsequent encounter
CPT/HCPCS: 73120

== ENCOUNTER → 2022-12-29 01:19 | Outpatient (CLI) | payer OTHER, SELFPAY ==
--- NOTE | 2022-12-29 14:18 | DI.MAMMO_ITS ---
Exam(s) MAMMO SCREENING EXAM: MAMMO SCREENING CLINICAL HISTORY: SCREENING, Z12.39. TECHNIQUE: Bilateral full field digital CC and MLO mammographic images were obtained with 3D tomosyn thesis and utilizing computer aided detection (CAD). COMPARISON: Prior mammograms were reviewed. FINDINGS: There has been no significant change in the appearance and distribution of the fibroglandular tissue. There are no new spiculated masses nor malignant appearing microcalcification groups. There is no significant architectural distortion nor skin thickening-retraction. IMPRESSION: No radiographic evidence of malignancy. BI-RADS Category 1 - Negative Breast Density - Category C - Heterogeneously dense Breast density Category C or D implies that the patient has dense breast tissue. Dense breast tissue can make it harder to find cancer on a mammogram. Dense breast tissue is also associated with an incr eased risk of breast cancer. This information about the result of the mammogram report was provided to the patient to raise their awareness. Use this report when you speak with the patient about their risks for breast cancer, which includes their family history. At that time, you may recommend additional screening tests (Ultrasoun d or MRI) as these tests may add significant information. A negative radiographic report should not delay biopsy if a dominant or clinically suspicious mass is present. Up to ten percent of cancers are not identified on mammography. A negative report may reinforce clinical impression. Adenosis and dense breasts may obscure an underlying neoplasm. False positive reports average 6 to 10%. Patient will receive a letter notifying them of these results.
== END ==
PROVIDERS: PCP Family Medicine; Visit Provider Internal Medicine
DX: Z12.31 Encounter for screening mammogram for malignant neoplasm of breast (principal)
CPT/HCPCS: 77063; 77067

== ENCOUNTER 2023-01-05 11:02 | Outpatient (CLI) | payer OTHER, SELFPAY ==
--- NOTE | 2023-01-05 10:45 | DI.RAD_ITS ---
Exam(s) XR HAND RT COMPLETE EXAM: XR HAND RT COMPLETE CLINICAL HISTORY: right hand fx f/u. TECHNIQUE: 2D digital imaging was performed. Three views. COMPARISON: CR XR HAND RT LIMITED from 12/23/2022 FINDINGS: There has been no change in the alignment of the distal 5th metacarpal fracture. DATA REPOSITORY: RADIATION DOSE DELIVERED:
== END 2023-01-05 11:03 | disposition home or self-care (01) ==
LOC: DIORS 11:02
PROVIDERS: PCP Family Medicine; Visit Provider Student in an Organized Health Care Education/Training Program
DX: S62.356D Nondisplaced fracture of shaft of fifth metacarpal bone, right hand, subsequent encounter for fracture with routine healing (principal); X58.XXXD Exposure to other specified factors, subsequent encounter
CPT/HCPCS: 73130

== ENCOUNTER 2023-02-09 10:24 | Outpatient (CLI) | payer OTHER, SELFPAY ==
--- NOTE | 2023-02-09 09:45 | DI.RAD_ITS ---
Exam(s) XR HAND RT COMPLETE EXAM: XR HAND RT COMPLETE CLINICAL HISTORY: f/u 5TH METACARPAL FX. TECHNIQUE: 2D digital imaging was performed. Three views. COMPARISON: CR XR HAND RT COMPLETE from 01/05/2023 FINDINGS: BONES: There has been no change in the alignment of the 5th metacarpal fracture. No bony destructive lesion is seen. JOINTS: No dislocation present. SOFT TISSUE: Normal. IMPRESSION: Stable alignment of 5th metacarpal fracture. DATA REPOSITORY: RADIATION DOSE DELIVERED:
== END 2023-02-09 10:25 | disposition home or self-care (01) ==
LOC: DIORS 10:24
PROVIDERS: PCP Family Medicine; Referring Provider Family Medicine; Visit Provider Physician Assistant
DX: S62.356A Nondisplaced fracture of shaft of fifth metacarpal bone, right hand, initial encounter for closed fracture (principal); X58.XXXA Exposure to other specified factors, initial encounter
CPT/HCPCS: 73130

== ENCOUNTER 2023-10-06 08:30 | Outpatient (REF) | payer OTHER, SELFPAY ==
--- OUTSIDE RECORDS SUMMARY | 2023-10-06 08:32 | XMS_ITS | Encounter Summary ---
[facility] [place] [id number] Care Team Providers Care Composing Machine Operator/Tender Name Role Phone Unavailable Primary Care Provider Unavailabl e Encounter Details Date Type Department Care Team (Late st Contact Info) Description 11/20/2020 12:00 PM EDT - 11/20/2020 11:59 PM EDT Hospital Encounter [facility] [address] [place] [phone] Derrick Godinez, DO [address] [place] [phone] Discharge Disposition: Home Social History Tobacco Use Types Packs/Day Years Used Date Smoking Tobacco: Never Assessed Sex and Gender Information Value Date Recorded Sex Assigned at Not on file Gender Identity Not on file Sexual Orientation Not on file documented as of this encounter Plan of Treatment Not on file documented as of this encounter Procedures Procedure Name Priority Date/Time Associated Diagnosis Comments COVID-19 PCR Routine 11/20/2020 10:00 AM EDT documented in this encounter Results * COVID-19 PCR (11/20/2020 10:00 AM EDT) SARS-CoV-2 RNA Not Detected Not Detected [facility] Comment: This result should be interpreted in combination with the clinical observations, patient history and epidemiological information. For testing of asymptomatic individuals, assay performance characteristics and clinical utility have not been evaluated. Testing for SARS-CoV-2 (Severe acute respiratory syndrome coronavirus 2, formerly known as 2019 novel coronavirus or 2019-nCoV) to aid in the diagnosis of COVID-19 is performed using the Aptima SARS Co-V-2 Assay on the Smartling System ([employer] as authorized by the FDA issued Emergency Use Authorization (EUA). This assay is intended for In-vitro Diagnostic (IVD) use with nasopharyngeal swabs collected from individuals meeting the CDC criteria for testing. The assay is performed based on the instructions for use and additional guidance provided by the FDA. Testing is performed in the Microbiology Laboratory within the Department of Pathology and Laboratory Medicine at [facility], certified under the Clinical Laboratory Improvement Amendments of 1988 (CLIA), 42 U.S.C. section 263a, to perform high-complexity tests. Assay performance has been verified according to clinical laboratory regulatory requirements. Test results are provided above. A result of Not Detected indicates that the viral RNA target is not present but does not preclude SARS-CoV-2 infection. False negative results may occur if a specimen is improperly collected, transported or handled; if amplification inhibitors are present; or if inadequate numbers of viral particles are present in the specimen. A result of Detected suggests a current or recent infection and the patient is presumed to be infected. Positive and negative predictive values for this test are highly dependent on disease prevalence. A result of Invalid indicates the inability to conclusively determine the presence or absence of SARS-CoV-2 RNA in the sample which can be due to a variety of factors. ??Collection of a new sample for repeat testing is recommended in the case of an invalid result. CDC COVID-19 criteria for testing on human specimens and clinical management guidance information are available at the CDC Coronavirus Disease 2019 (COVID-19) webpage under Information for Healthcare Professionals (https://www.cdc.gov/coronavirus/2019-ncov/hcp/index.html). Additional information about this and other EUA tests can be found in provider and patient fact sheets at the following FDA website: https://www.fda.gov/medical-devices/tqqdtgjxvgd-qteinkp-0888-mgesg-33-rwmdzrtgp- use-a tkpozmlynskqg-ucpgmqb-nwokdam/hoart-nafgfwodnrt-yfum SARS-CoV-2 RNA Source [employer] Swab [facility] Nasopharyngeal Swab 11/21/19 10:00 AM EDT 11/20/2020 10:46 PM EDT Narrative Resulting Agency Comment Spec In Lab Derrick Godinez DO [place] [address] documented in this encounter Visit Diagnoses Not on filedocumented in this encounter
--- OUTSIDE RECORDS SUMMARY | 2023-10-06 08:32 | XMS_ITS | Encounter Summary ---
Author Organization [facility] Address [address] [place] [address] Care Team Providers Care Radar Engineering Teacher Name Role Phone Unknown, Provider Primary Care Provider [phone] Encounter Details Date Type Department Care Team (Late st Contact Info) Description 08/11/2016 Results Only [facility] [phone] Cristine Munson MD [address] [place] [phone] Social History Tobacco Use Types Packs/Day Years Used Date Smoking Tobacco: Never Assessed Sex and Gender Information Value Date Recorded Sex Assigned at Not on file Gender Identity Not on file Sexual Orientation Not on file documented as of this encounter Plan of Treatment Not on file documented as of this encounter Procedures Procedure Name Priority Date/Time Associated Diagnosis Comments PAP TEST- RESULT ONLY Routine 08/11/2016 0:00 EDT documented in this encounter Results * PAP TEST- RESULT ONLY (08/11/2016 0:00 EDT) Pathology Report: CYTOPATHOLOGY REPORT Reports generated via electronic interface contain original data; however they are lacking the format of the original report. Caution should be taken when reading/interpret ing unformatted reports. Name: ? RANDALLCRISTINE ? Accession #: ? [id number] : ? 1955 (Age: 61) ??F ?Collect Date: ? 08/11/2016 Location: ? [facility] ? Receive Date: ? 08/13/2016 Provider: ?CRISTINE MUNSON MD Copy to: ? Specimen/Source: ?Pap Test, Cervix/Endocervix , ThinPrep Imaging System with manual evaluation Last Menstrual Period: ? Hormonal/Contrace ptive Status: ? None Other: ? Additional clinical information: unsat PAP ? SPECIMEN ADEQUACY ? Unsatisfactory for Evaluation, - insufficient numbers of squamous epithelial cells (less than 10% of expected cellularity) GENERAL CATEGORIZATION ? Specimen processed and examined, but unsatisfactory for evaluation of epithelial abnormality. ??Recommend repeat Pap test in 2-4 months as stated in ASCCP's 2012 Updated Consensus Guidelines. ? Document reviewed and electronically signed by: ? ARIEL Geiger(ASCP) ? Report Date: ??08/24/2016 14:09 End of Report [facility] 08/11/2016 08/13/2016 Cristine Munson MD PATHOLOGY ORDERABLES Performing Organization Address City/State/[facility] Co de Phone Number [facility] [address] [place] [address] documented in this encounter Visit Diagnoses Not on filedocumented in this encounter Care Teams Radar Engineering Teacher Relationship Specialty Start Date End Date Unknown, Provider, PCP - General 01/08/09 documented as of this encounter
--- OUTSIDE RECORDS SUMMARY | 2023-10-06 08:32 | XMS_ITS | Encounter Summary ---
Author Organization [facility] Address [address] [place] [address] Care Team Providers Care Naturopath Name Role Phone Unknown, Provider Primary Care Provider [phone] Encounter Details Date Type Department Care Team (Late st Contact Info) Description 05/11/2006 Results Only [facility] [address] [place], [place] [phone] Roya Aguilar MD [address] [place] [address] [place] Social History Tobacco Use Types Packs/Day Years Used Date Smoking Tobacco: Never Assessed Sex and Gender Information Value Date Recorded Sex Assigned at Not on file Gender Identity Not on file Sexual Orientation Not on file documented as of this encounter Plan of Treatment Not on file documented as of this encounter Procedures Procedure Name Priority Date/Time Associated Diagnosis Comments SURGICAL PATHOLOGY Routine 05/11/2006 0:00 EDT documented in this encounter Results * SURGICAL PATHOLOGY (05/11/2006 0:00 EDT) Pathology Report: SURGICAL PATHOLOGY REPORT Reports generated via electronic interface contain original data; however they are lacking the format of the original report. Caution should be taken when reading/interpreti ng unformatted reports. Name: ? CRISTINE PEREIRA ? Accession #: ? [id number] ? : ? 1955 (Age: 50) ??F ? Collect Date: ? 05/11/2006 ? Location: ? [facility] ? Receive Date: ? 05/11/2006 ? Provider: ROYA AGUILAR MD Copy to: CRISTINE MUNSON MD ? Final Pathologic Diagnosis: ? Endometrium, biopsy: 1. ?Inactive endometrium with tubal metaplasia and early secretory phase endometrium with glandular crowding. ??See comment. 2. ? No cytologic atypia. 3. ? Focal stromal breakdown. Comment: ? The changes seen may represent secretory changes superimposed on simple hyperplasia or a disordered proliferative pattern. ??Rare tissue fragments suggest the possibility of benign endometrial polyp although the findings are not pathognomic. ??No cytologic atypia is present. This case was reviewed at the intradepartmental consultation conference on 05/13/06. ??In addition, Dr. Cristine Coleman has reviewed this case in consultation and agrees with the findings. ??(Dr. Hester)/[facility] Document reviewed and electronically signed by: Nicole Hester MD Report ??Date: 05/16/2006 15:44 By the signature above, the attending physician certifies that he/she has personally conducted a gross and/or microscopic examination of the described specimens and rendered or confirmed the above diagnosis. Specimen(s) Received: ? Endometrial bx Clinical History: ? A.U.B.; on Provera; LMP: 04/06/06 Gross Description: ? Received in formalin labelled Santos and endometrial bx are 3.0 x 2.5 x 0.6 cm of multiple pagan-pink to red hemorrhagic irregular soft tissue fragments. The specimen is entirely submitted as (A1) and (A2) following filtration. (Maryanne Guerrero/jared End of Report [facility] 05/11/2006 05/11/2006 1:2 5 EDT Roay Aguilar MD PATHOLOGY ORDERABLES [facility] [address] [place] [phone] documented in this encounter Visit Diagnoses Not on filedocumented in this encounter Care Teams Naturopath Relationship Specialty Start Date End Date Unknown, Provider, PCP - General 01/08/09 documented as of this encounter
--- OUTSIDE RECORDS SUMMARY | 2023-10-06 08:32 | XMS_ITS | Encounter Summary ---
Author Organization [facility] Address [address] [place] [address] Care Team Providers Care Assistant Operator Name Role Phone Unknown, Provider Primary Care Provider Encounter Details Date Type Department Care Team (Late st Contact Info) Description 11/12/2021 Lab Requisition [facility] Pathology & Laboratory Medicine - [facility] [address] [place] [address] Outr Resulting Lab, Provider Social History Tobacco Use Types Packs/Day Years Used Date Smoking Tobacco: Never Assessed Sex and Gender Information Value Date Recorded Sex Assigned at Not on file Gender Identity Not on file Sexual Orientation Not on file documented as of this encounter Plan of Treatment Not on file documented as of this encounter Procedures Procedure Name Priority Date/Time Associated Diagnosis Comments OSMOLALITY, URINE Routine 11/12/2021 8:35 EDT documented in this encounter Results * OSMOLALITY, URINE (11/12/2021 8:35 EDT) Osmolality, Urine 234 150-1,150 mOsm/kg 11/12/2021 21:40 EDT [facility] Urine URINE SPECIMEN COLLECTION, CLEAN CATCH / Unknown 11/12/2021 8:35 EDT 11/12/2021 21:14 EDT Provider Outr Resulting Lab URINALYSIS O RDERABLES [facility] [address] [place] [address] documented in this encounter Visit Diagnoses Not on filedocumented in this encounter Care Teams Assistant Operator Relationship Specialty Start Date End Date Unknown, Provider, PCP - General 01/08/09 documented as of this encounter
--- OUTSIDE RECORDS SUMMARY | 2023-10-06 08:32 | XMS_ITS | Encounter Summary ---
Author Organization [place] [address] Care Team Providers Care Tank Car Cleaner Name Role Phone Unavailable Primary Care Provider Unavailabl e Encounter Details Date Type Department Care Team (Late st Contact Info) Description 11/06/2020 Interpretation Only [address] [phone] Derrick Ramirez MD [address] [place] [address] Social History Tobacco Use Types Packs/Day Years Used Date Smoking Tobacco: Never Assessed Sex and Gender Information Value Date Recorded Sex Assigned at Not on file Gender Identity Not on file Sexual Orientation Not on file documented as of this encounter Plan of Treatment Not on file documented as of this encounter Procedures Procedure Name Priority Date/Time Associated Diagnosis Comments US ABDOMEN LIMITED STAT 11/06/2020 4: 06 PM EDT documented in this encounter Results * US Abdomen Limited (11/06/2020 4:06 PM EDT) PT CLASS E RAD ADMITDTTM RAD PT RAD INFO [id number]^F INDLEY^JANEE BAEZ RAD EXAM DESC UABDLIM^US ABDOMEN LIMITED^RIS RAD Anatomical Region Laterality Modality Abdomen Ultrasound Impressions 11/06/2020 4:22 PM EDT Cholelithiasis without evidence of acute cholecystitis. Thank you for letting us participate in the care of this patient. ??If you are a health care provider and have any questions regarding this report, please contact the number below. ??For patients who have questions please contact the health healthcare corporate account director that requested your imaging first. ? Narrative 11/06/2020 4:22 PM EDT EXAMINATION: US ABDOMEN LIMITED CLINICAL HISTORY: RUQ pain/vomiting TECHNIQUE: Grayscale and color sonographic imaging was performed of the right upper quadrant of the abdomen. COMPARISON: None FINDINGS: The liver is normal in size and echotexture. There are no focal liver lesions. There is hepatopedal flow within the portal vein. The gallbladder contains multiple shadowing stones. There is no gallbladder wall thickening. There is no pericholecystic fluid. No evidence of hyperemia within the wall the gallbladder on color imaging. There is a negative sonographic Westbrook sign. The common bile duct measures 6 mm in diameter. Limited views of the pancreas are unremarkable. There is mild fullness of the calyces within the right kidney. The right kidney otherwise appears unremarkable measuring up to 12 cm in length. The visualized portion of the IVC is unremarkable. Procedure Note Kaye Dobbs MD - 11/06/2020 EXAMINATION: US ABDOMEN LIMITED CLINICAL HISTORY: RUQ pain/vomiting TECHNIQUE: Grayscale and color sonographic imaging was performed of the right upper quadrant of the abdomen. COMPARISON: None FINDINGS: The liver is normal in size and echotexture. There are no focal liverlesions. There is hepatopedal flow within the portal vein. The gallbladder contains multiple shadowing stones. There is nogallbladder wall thickening. There is no pericholecystic fluid. No evidence of hyperemiawithin the wall the gallbladder on color imaging. There is a negativesonographic Westbrook sign. The common bile duct measures 6 mm in diameter. Limited views of the pancreas are unremarkable. There is mild fullness of the calyces within the right kidney. The rightkidney otherwise appears unremarkable measuring up to 12 cm in length. The visualized portion of the IVC is unremarkable. IMPRESSION Cholelithiasis without evidence of acute cholecystitis. Thank you for letting us participate in the care of this patient. If youare a health care provider and have any questions regarding this report,please contact the number below. For patients who have questions please contactthe health healthcare corporate account director that requested your imaging first. Electronically signed by: KAYE DOBBS [facility] ([phone]),at 11/06/2020 4:22 PM Derrick Ramirez MD IMG GEN GLORIA PERRY documented in this encounter Visit Diagnoses Not on filedocumented in this encounter
--- OUTSIDE RECORDS SUMMARY | 2023-10-06 08:32 | XMS_ITS | Encounter Summary ---
Author Organization [facility] Address [address] [place] [address] Care Team Providers Care Stenotype Operator Name Role Phone Unknown, Provider Primary Care Provider [phone] Encounter Details Date Type Department Care Team (Late st Contact Info) Description 06/08/2006 Results Only [facility] Family Medicine - [address] [address] Cristine Chamberlain MD [address] [place] [phone] Social History Tobacco Use Types Packs/Day Years Used Date Smoking Tobacco: Never Assessed Sex and Gender Information Value Date Recorded Sex Assigned at Not on file Gender Identity Not on file Sexual Orientation Not on file documented as of this encounter Plan of Treatment Not on file documented as of this encounter Procedures Procedure Name Priority Date/Time Associated Diagnosis Comments CYTOPATHOLOGY Routine 06/08/2006 0:00 EDT documented in this encounter Results * CYTOPATHOLOGY (06/08/2006 0:00 EDT) Pathology Report: CYTOPATHOLOGY REPORT Reports generated via electronic interface contain original data; however they are lacking the format of the original report. Caution should be taken when reading/interpreti ng unformatted reports. Name: ? CRISTINE PEREIRA ? Accession #: ? [id number] : ? 1955 (Age: 50) ??F ?Collect Date: ? 06/08/2006 Location: ? [facility] ? Receive Date: ? 06/09/2006 Provider: ?CRISTINE CHAMBERLAIN MD Copy to: ? Specimen/Source: ?ThinPrep Pap Test, Endocervix, processed on Intimate Bridge 2 Conception ThinPrep Imaging System, with manual evaluation Last Menstrual Period: ? Hormonal/Contracep tive Status: ? Progesterone Other: ? Additional clinical information: Dysfunctional uterine bleeding HPVA - HPV testing requested if ASC-US on the current ThinPrep Pap test. ? SPECIMEN ADEQUACY ? Unsatisfactory for Evaluation, - insufficient numbers of squamous epithelial cells (less than 10% of expected cellularity) - sample preparation compromised by excessive blood GENERAL CATEGORIZATION ? Specimen processed and examined, but unsatisfactory for evaluation of epithelial abnormality. Recommend repeat Pap test or further follow up, as clinically indicated. ? Document reviewed and electronically signed by: ? ARIEL Garcia(ASCP) ? Report Date: ??06/15/2006 15:32 End of Report [facility] 06/08/2006 06/09/2006 Cristine Chamberlain MD PATHOLOGY ORDERABLES [facility] [address] [place] [address] documented in this encounter Visit Diagnoses Not on filedocumented in this encounter Care Teams Stenotype Operator Relationship Specialty Start Date End Date Unknown, Provider, PCP - General 01/08/09 documented as of this encounter
--- OUTSIDE RECORDS SUMMARY | 2023-10-06 08:32 | XMS_ITS | Encounter Summary ---
Author Organization [facility] Address [address] [place] [address] Care Team Providers Care Caterer Helper Name Role Phone Unknown, Provider Primary Care Provider Encounter Details Date Type Department Care Team (Late st Contact Info) Description 10/14/2022 Lab Requisition [facility] Pathology & Laboratory Medicine - [facility] [address] [place] [address] Outr Resulting Lab, Provider Social History Tobacco [...] Procedure Name Priority Date/Time Associated Diagnosis Comments CORTISOL, STIMULATION BASELINE Routine 10/14/2022 7:05 EDT documented in this encounter Results * CORTISOL, STIMULATION BASELINE (10/14/2022 7:05 EDT) Cortisol Stimulation, Baseline 17 4 - 23 ug/dL 10/14/2022 20:25 EDT [facility] Comment: NOTE: The results of this assay can be falsley elevated due to the consumption of Biotin. Blood VENOUS BLOOD / Unknown 10/14/2022 7:05 EDT 10/14/2022 19:36 EDT Provider Outr Resulting Lab CHEMISTRY & BLOOD GAS ORDERABLES [facility] [address] [place] [address] documented in this encounter Visit Diagnoses Not on filedocumented in this encounter Care Teams Caterer Helper Relationship Specialty Start Date End Date Unknown, Provider, PCP - General 01/08/09 documented as of this encounter
--- OUTSIDE RECORDS SUMMARY | 2023-10-06 08:32 | XMS_ITS | Encounter Summary ---
Author Organization [facility] [address] [place] [id number] Care Team Providers Care Copier Technician Name Role Phone Unavailable Primary Care Provider Unavailabl e Encounter Details Date Type Department Care Team (Late st Contact Info) Description 11/25/2020 Interpretation Only [facility] [address] [place] [address] Derrick Godinez, DO [address] [place] [address] Social History Tobacco Use Types Packs/Day Years Used Date Smoking Tobacco: Never Assessed Sex and Gender Information Value Date Recorded Sex Assigned at Not on file Gender Identity Not on file Sexual Orientation Not on file documented as of this encounter Plan of Treatment Not on file documented as of this encounter Procedures Procedure Name Priority Date/Time Associated Diagnosis Comments XR CHOLANGIOGRAM IN OR Routine 9:54 AM EDT documented in this encounter Results * XR CHOLANGIOGRAM IN OR (11/25/2020 9:54 AM EDT) PT CLASS O RAD ADMITDTTM RAD PT RAD MD INFO [id number]^D ANIELSON^CHR ISTOPHER^S RAD EXAM DESC XCHOL^CHOLAN GIOGRAM INTRAOP^RIS RAD Anatomical Region Laterality Modality Other Impressions 11/25/2020 10:05 AM EDT Fluoroscopic assistance provided to Dr. Godinez for fluoroscopic time of 30.5 seconds and cumulative dose of 5.09 mGy. ?? A radiologist was not present for the procedure. Thank you for letting us participate in the care of this patient. ??If you are a health care provider and have any questions regarding this report, please contact the number below. ??For patients who have questions please contact the health wound care specialist that requested your imaging first. ? Electronically signed by: Daniel Edward MD, [facility] ([phone]), at 11/25/2020 10:05 AM Narrative 11/25/2020 10:05 AM EDT EXAMINATION: CHOLANGIOGRAM INTRAOP COMPARISON: None FINDINGS: See impression. Procedure Note Daniel Edward MD - 11/25/2020 EXAMINATION: CHOLANGIOGRAM INTRAOP COMPARISON: None FINDINGS: See impression. IMPRESSION Fluoroscopic assistance provided to Dr. Godinez for fluoroscopic time of 30.5 seconds and cumulative dose of 5.09 mGy. A radiologist was not present for the procedure. Thank you for letting us participate in the care of this patient. If youare a health care provider and have any questions regarding this report,please contact the number below. For patients who have questions please contactthe health wound care specialist that requested your imaging first. Electronically signed by: Daniel Edward MD, [facility]([phone]), at 11/25/2020 10:05 AM Derrick Godinez DO [facility] documented in this encounter Visit Diagnoses Not on filedocumented in this encounter
--- OUTSIDE RECORDS SUMMARY | 2023-10-06 08:32 | XMS_ITS | Encounter Summary ---
Author Organization [facility] Address [facility] [place] [address] Care Team Providers Care Bin Filler Name Role Phone Unavailable Primary Care Provider Unavailabl e Encounter Details Date Type Department Care Team (Latest Contact Info) Description 11/25/2020 10:57 PM EDT - 11/25/2020 11:59 PM EDT Hospital [place] [address] Discharge Disposition: Home Social History Tobacco Use [...] Priority Date/Time Associated Diagnosis Comments SURGICAL PATHOLOGY REPORT Routine 11/25/2020 10:10 AM EDT documented in this encounter Results * Surgical Pathology Report (11/25/2020 10:10 AM EDT) Final Diagnosis [id number] ? Location: [facility] The signing pathologist has (i) examined the relevant preparation(s) for the specimen(s) and (ii) rendered or confirmed the diagnosis(es). . ?Surgical Pathology DIAGNOSIS A- Gallbladder: - ??Chronic cholecystitis and cholelithiasis. Electronically signed by: ?Amrit Norris MD Verified: ??12/02/2020 13:30 ??Pathologist Performed at: ??-[facility] Dept. of [place]ology, [place], [place] SPECIMEN(S) SUBMITTED A- Gallbladder CLINICAL INFORMATION Biliary colic, cholelithiasis by ultrasound SPECIMEN PROCESSING A - Labeled/Fixative: Gallbladder, formalin. Quantity/Size: ??Single, 7.2 x 3.0 x 3.0 cm. Specimen Description: Gallbladder, received intact. Serosa: Pagan-white with fibrous adhesions. Hepatic margin: Unremarkable. Lumen contents: Bile is absent Gallstones: Present: Single, green gallstone, 7.2 x 3.0 x 3.0 cm. Mucosa: White, flattened and trabecular. The gallstone encompasses the entire lumen including the neck with complete occlusion of lumen. Wall: 0.1 cm thick. With focal thickening of the fundic wall up to 0.5 cm Duct: 0.3 cm. Lymph Node: 1.0 x 0.6 x 0.5 cm, pagan-pink periductal lymph node. Ink Designation: The hepatic margin is inked black Sections/Processi ng: [employer] Monitor sections in 3 cassettes as follows: ?A1: ??Cystic duct margin and one lymph node bisected ?A2: ??Thick into fundic wall ?A3: ??Body and neck mucosa ??sns 12/02/2020 1:30 PM EDT [facility] GALLBLADDER STRUCTURE / Unknown 11/25/2020 10:10 AM EDT 11/25/2020 10:10 AM EDT Derrick Godinez DO PATHOLOGY/CYT OLOGY ORDERABLES [facility] [place] [address] documented in this encounter Visit Diagnoses Not on filedocumented in this encounter
--- OUTSIDE RECORDS SUMMARY | 2023-10-06 08:32 | XMS_ITS | Encounter Summary ---
Author Organization [facility] Address [address] [place] [address] Care Team Providers Care Courtesy Driver Name Role Phone Unknown, Provider Primary Care Provider Encounter Details Date Type Department Care Team (Late st Contact Info) Description 11/29/2000 Results Only [facility] Family Medicine [address] [address] Cliff Chamberlain MD [address] [place] [phone] Social History Tobacco Use Types Packs/Day Years Used Date Smoking Tobacco: Never Assessed Sex and Gender Information Value Date Recorded Sex Assigned at Not on file Gender Identity Not on file Sexual Orientation Not on file documented as of this encounter Plan of Treatment Not on file documented as of this encounter Procedures Procedure Name Priority Date/Time Associated Diagnosis Comments CYTOPATHOLOGY Routine 11/29/2000 0:00 EDT documented in this encounter Results * CYTOPATHOLOGY (11/29/2000 0:00 EDT) Pathology Report: CYTOPATHOLOGY REPORT Reports generated via electronic interface contain original data; however they are lacking the format of the original report. Caution should be taken when reading/interpreti ng unformatted reports. Name: ? CLIFF PEREIRA ? Accession #: ? [id number] : ? 1955 (Age: 45) ??F ?Collect Date: ? 11/29/2000 Location: ? [facility] ? Receive Date: ? 12/02/2000 Provider: ?CLIFF CHAMBERLAIN MD Copy to: ? Specimen/Source: ?ThinPrep Pap Test, Endocervix Last Menstrual Period: ? 11/24/00 Other: ? HPVL - HPV testing requested if LSIL/ASCUS/FLORENTIN on the current ThinPrep Pap test. ? SPECIMEN ADEQUACY ? Satisfactory for evaluation. GENERAL CATEGORIZATION ? Within Normal Limits ? Document reviewed and electronically signed by: ? ARIEL Luke(ASCP) ? Report Date: ??12/06/2000 14:33 End of Report [facility] 11/29/2000 12/02/2000 Cliff Chamberlain MD PATHOLOGY ORDERABLES Performing Organization Address City/State/[facility] Co de Phone Number [facility] [address] [place] [address] documented in this encounter Visit Diagnoses Not on filedocumented in this encounter Care Teams Courtesy Driver Relationship Specialty Start Date End Date Unknown, Provider, PCP - General 01/08/09 documented as of this encounter
--- OUTSIDE RECORDS SUMMARY | 2023-10-06 08:32 | XMS_ITS | Encounter Summary ---
Author Organization [facility] Address [address] [place] [address] Care Team Providers Care Upholstery Estimator Name Role Phone Unavailable Primary Care Provider Unavailabl e Encounter Details Date Type Department Care Team (Late st Contact Info) Description 01/06/2009 Orders Only [facility] ([facility] [address] [place], [place] [id number] Julia Duggan MD [address] [place] [address] [place] [address] Social History Tobacco Use Types Packs/Day Years Used Date Smoking Tobacco: Never Assessed Sex and Gender Information Value Date Recorded Sex Assigned at Not on file Gender Identity Not on file Sexual Orientation Not on file documented as of this encounter Plan of Treatment Not on file documented as of this encounter Procedures Procedure Name Priority Date/Time Associated Diagnosis Comments SURGICAL PATHOLOGY Routine 01/06/2009 0:00 EST documented in this encounter Results * SURGICAL PATHOLOGY (01/06/2009 0:00 EST) Pathology Report: SURGICAL PATHOLOGY REPORT ? Reports generated via electronic interface contain original data; ? however they are lacking the format of the original report. ? Caution should be taken when reading/interpreti ng unformatted reports. ? Name: ? RANDALL, CRISTINE ? Accession #: ? [id number] ? : ? 1955 (Age: 53) ??F ? Collect Date: ? 01/06/2009 ? Location: ? [facility] ? Receive Date: ? 01/06/2009 ? Provider: JULIA N IFEOMA MD ? Copy to: CRISTINE FINE MD ? Final Pathologic Diagnosis: ? Skin of foot, left third ray, excisional biopsy: ? 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 ? Comment: ? The digital mucus cyst is best seen on deeper sections. (Dr. Moyer)/mpl ? Microscopic Description: ? Sections consist of an excision of skin to the deep reticular dermis. ??The stratum corneum consists of a thick layer of compact keratin. ??Centrally, there is a zone of parakeratosis with intracorneal hemorrhage and crust. The ? epidermis, in this region is hyperplastic and shows reactive changes. ??The ? underlying dermis has dense fibrosis and a reactive vascular proliferation. ??On the deeper sections, the dermis, in this region, has myxoid change with stellate fibroblasts and erythrocyte extravasation. ??A small loculated pool of mucinous ?? material is evident immediately beneath the epidermis. ??(Dr. Moyer)/mpl ? Document reviewed and electronically signed by: ? Olena Girard. João, MD ? Report ??Date: 01/08/2009 16:37 ? By the signature above, the attending physician certifies that he/she has ? personally conducted a gross and/or microscopic examination of the described ? specimens and rendered or confirmed the above diagnosis. ? Specimen(s) Received: ? Lt ??3rd ray Lt foot ? Clinical History: ?Mucoid cyst ? Gross Description: ? Received in formalin labelled Cristine Graham and ?mucoid cyst Lt 3rd ?? ray is an unoriented elliptical excision of pagan-white skin which measures 1.1 x 0.6 cm and is excised to a depth of 0.4 cm. There is a central, pagan-white, ? ulcerated area measuring 0.5 x 0.4 cm. ??The margins are inked black. ??The ? specimen is serially sectioned and entirely submitted as (A1) central sections ?? and (A2) tips, reverse en face. ??(Kimberlyn Dennis)/pavan ? End of Report ? [facility] 01/06/2009 01/06/2009 20: 24 EST Julia Duggan MD PATHOLOGY ORDERABLES [facility] [address] [place] [address] documented in this encounter Visit Diagnoses Not on filedocumented in this encounter
--- OUTSIDE RECORDS SUMMARY | 2023-10-06 08:32 | XMS_ITS | Encounter Summary ---
Author Organization [facility] Address [address] [place] [address] Care Team Providers Care Kettle Cleaner Name Role Phone Unknown, Provider Primary Care Provider Encounter Details Date Type Department Care Team (Late st Contact Info) Description 12/31/2003 Results Only [facility] Family Medicine - [address] [address] Cristine Chamberlain MD [address] [place] [phone] Social History Tobacco Use Types Packs/Day Years Used Date Smoking Tobacco: Never Assessed Sex and Gender Information Value Date Recorded Sex Assigned at Not on file Gender Identity Not on file Sexual Orientation Not on file documented as of this encounter Plan of Treatment Not on file documented as of this encounter Procedures Procedure Name Priority Date/Time Associated Diagnosis Comments CYTOPATHOLOGY Routine 12/31/2003 0:00 EST documented in this encounter Results * CYTOPATHOLOGY (12/31/2003 0:00 EST) Pathology Report: CYTOPATHOLOGY REPORT Reports generated via electronic interface contain original data; however they are lacking the format of the original report. Caution should be taken when reading/interpreti ng unformatted reports. Name: ? RANDALL CRISTINE ? Accession #: ? [id number] : ? 1955 (Age: 48) ??F ?Collect Date: ? 12/31/2003 Location: ? [facility] ? Receive Date: ? 01/02/2004 Provider: ?CRISTINE CHAMBERLAIN MD Copy to: ? Specimen/Source: ?ThinPrep Pap Test, Endocervix Last Menstrual Period: ? 12/18/03 Other: ? HPVA - HPV testing requested if ASC-US on the current ThinPrep Pap test. ? SPECIMEN ADEQUACY ? Satisfactory for Evaluation - transformation zone component present GENERAL CATEGORIZATION ? Negative for Intraepithelial Lesion or Malignancy ? Document reviewed and electronically signed by: ? ARIEL Garcia(ASCP) ? Report Date: ??01/10/2004 12:54 End of Report [facility] 12/31/2003 01/02/2004 Cristine Chamberlain MD PATHOLOGY ORDERABLES Performing Organization Address City/State/[facility] Co de Phone Number [facility] [address] [place] [address] documented in this encounter Visit Diagnoses Not on filedocumented in this encounter Care Teams Kettle Cleaner Relationship Specialty Start Date End Date Unknown, Provider, PCP - General 01/08/09 documented as of this encounter
--- OUTSIDE RECORDS SUMMARY | 2023-10-06 08:32 | XMS_ITS | Encounter Summary ---
Author Organization [facility] Address [address] [place] [address] Care Team Providers Care Apprentice Carpenter Name Role Phone Unavailable Primary Care Provider Unavailabl e Encounter Details Date Type Department Care Team (Late st Contact Info) Description 04/24/2008 Before PRISM Converted Visit ([place]) [facility] Medicine [address] [address] Cristine Chamberlain MD [address] [place] [phone] Social History Tobacco Use Types Packs/Day Years Used Date Smoking Tobacco: Never Assessed Sex and Gender Information Value Date Recorded Sex Assigned at Not on file Gender Identity Not on file Sexual Orientation Not on file documented as of this encounter Plan of Treatment Not on file documented as of this encounter Procedures Procedure Name Priority Date/Time Associated Diagnosis Comments CYTOPATHOLOGY Routine 04/24/2008 0:00 EDT documented in this encounter Results * CYTOPATHOLOGY (04/24/2008 0:00 EDT) Pathology Report: CYTOPATHOLOGY REPORT ? Reports generated via electronic interface contain original data; ? however they are lacking the format of the original report. ? Caution should be taken when reading/interpreti ng unformatted reports. ? Name: ? CRISTINE PEREIRA ? Accession #: ? [id number] ? : ? 1955 (Age: 52) ??F ?Collect Date: ? 04/24/2008 ? Location: ? [facility] ? Receive Date: ? 04/26/2008 ? Provider: ?SHARONNONFAHC FINE MD ? Copy to: ? Specimen/Source: ?Pap Test, Endocervix, ThinPrep Imaging System with ? manual evaluation ? Last Menstrual Period: ? n/a ? Other: ? HPVA - HPV testing requested if ASC-US on the current ThinPrep Pap test. ? SPECIMEN ADEQUACY ? Satisfactory for Evaluation ? - transformation zone component present ? GENERAL CATEGORIZATION ? Negative for Intraepithelial Lesion or Malignancy ? Document reviewed and electronically signed by: ? Anum Markell, CT(ASCP) ? Report Date: ??04/30/2008 09:26 ? End of Report ? [facility] 04/24/2008 04/26/2008 Cristine Chamberlain MD PATHOLOGY ORDERABLES Performing Organization Address City/State/[facility] Co de Phone Number [facility] [address] [place] [address] documented in this encounter Visit Diagnoses Not on filedocumented in this encounter
--- OUTSIDE RECORDS SUMMARY | 2023-10-06 08:32 | XMS_ITS | Clinical Summary ---
Author Organization [facility] Address [address] [place] [address] Care Team Providers Care Supervisor Abattoir Name Role Phone Unknown, Provider Primary Care Provider Social History Tobacco Use Types Packs/Day Years Used Date Smoking Tobacco: Never Assessed Sex and Gender Information Value Date Recorded Sex Assigned at Not on file Gender Identity Not on file Sexual Orientation Not on file Plan of Treatment Health Maintenance Due Date Last Done Comments Hepatitis C Screen 1955 RSV Immunization ( o r 60+ Years) (1 - 1-dose 60+ series) 2013 Fall Risk Screening 2018 COVID-19 Vaccine ( season) 2022 Care Teams Supervisor Abattoir Relationship Specialty Start Date End Date Unknown, Provider, PCP - General 01/08/09
--- OUTSIDE RECORDS SUMMARY | 2023-10-06 08:32 | XMS_ITS | Referral Summary ---
Author Organization [facility] Address [address] [place] [address] Care Team Providers Care Chief General Pediatric [facility] Name Role Phone Unknown, Provider Primary Care Provider Social History Tobacco Use Types Packs/Day Years Used Date Smoking Tobacco: Never Assessed Sex and Gender Information Value Date Recorded Sex Assigned at Not on file Gender Identity Not on file Sexual Orientation Not on file Plan of Treatment Not on file Care Teams Chief General [facility] Relationship Specialty Start Date End Date Unknown, Provider, PCP - General 01/08/09
--- OUTSIDE RECORDS SUMMARY | 2023-10-06 08:32 | XMS_ITS | Encounter Summary ---
Author Organization [facility] Address [address] [place] [address] Care Team Providers Care Ticket Worker Name Role Phone Unknown, Provider Primary Care Provider [phone] Encounter Details Date Type Department Care Team (Late st Contact Info) Description 03/15/2017 Results Only [facility] [phone] Maude Sims, [address] [place] [address] Social History Tobacco Use Types [...] Diagnosis Comments PAP TEST- RESULT ONLY Routine 03/15/2017 0:00 EST documented in this encounter Results * PAP TEST- RESULT ONLY (03/15/2017 0:00 EST) Pathology Report: CYTOPATHOLOGY REPORT Reports generated via electronic interface contain original data; however they are lacking the format of the original report. Caution should be taken when reading/interpreti ng unformatted reports. Name: ? CRISTINE PEREIRA ? Accession #: ? [id number] ? : ? 1955 (Age: 61) ??F ?Collect Date: ? 03/15/2017 ? Location: ? [facility] ? Receive Date: ? 03/16/2017 ? Provider: MAUDE SIMS COMBER TENDER Copy to: CRISTINE MUNSON MD ? Final Report SPECIMEN ADEQUACY ? Satisfactory for Evaluation - transformation zone component present - scant squamous epithelial component - contamination present, possibly lubricant GENERAL CATEGORIZATION ? Negative for Intraepithelial Lesion or Malignancy ?? Last Menstrual Period: 2008 Other: Additional clinical information: unsatisfactory x2 2016 Specimen/Source: ??Pap Test, Cervix, ThinPrep Imaging System with manual evaluation Document reviewed and electronically signed by: ? Georgia Smalls, [facility](ASCP) ? Report ??Date: 03/24/2017 09:00 HPV with Pap Test ? Date Ordered: ? 03/24/2017 ? Status: ?? Signed Out ?Date Complete: ? 03/25/2017 ? By: ??System Interface ? Date Reported: ? 03/25/2017 ? Interpretation RESULT: Negative for HPV. No E6 or E7 mRNA is detected from HPV types 16,18,31,33,35, 39,45,51,52,56,58, 59,66, and 68 by torpedo worker mediated amplification. Comments Document reviewed and electronically signed by: ? System Interface ? Report date: 03/25/2017 By the signature above, the attending physician certifies that he/she has personally conducted a gross and/or microscopic examination of the described specimens and rendered or confirmed the above diagnosis. End of Report [facility] 03/15/2017 03/16/2017 Maude Sims COMBER TENDER PATHOLOGY ORDERABLES [facility] [address] [place] [phone] documented in this encounter Visit Diagnoses Not on filedocumented in this encounter Care Teams Ticket Worker Relationship Specialty Start Date End Date Unknown, Provider, PCP - General 01/08/09 documented as of this encounter
--- OUTSIDE RECORDS SUMMARY | 2023-10-06 08:32 | XMS_ITS | Encounter Summary ---
Author Organization [facility] Address [address] [place] [address] Care Team Providers Care Data Warehouse Architect Name Role Phone Unknown, Provider Primary Care Provider [phone] Encounter Details Date Type Department Care Team (Late st Contact Info) Description 03/31/2001 Results Only [facility] [address], [place] [id number] Roya Aguilar MD [address] [place] [address] [place] Social History Tobacco Use Types Packs/Day [...] Date/Time Associated Diagnosis Comments SURGICAL PATHOLOGY Routine 03/31/2001 0:00 EST documented in this encounter Results * SURGICAL PATHOLOGY (03/31/2001 0:00 EST) Pathology Report: SURGICAL PATHOLOGY REPORT Reports generated via electronic interface contain original data; however they are lacking the format of the original report. Caution should be taken when reading/interpreting unformatted reports. Name: ? CRISTINE PEREIRA ? Accession #: ? [id number] ? : ? 1955 (Age: 45) ??F ? Collect Date: ? 03/31/2001 ? Location: ? [facility] ? Receive Date: ? 04/03/2001 ? Provider: ROYA AGUILAR MD Copy to: FARRUKH COURTNEY MD ? Final Pathologic Diagnosis: ? Endometrium, biopsy: - ??Dysynchronous secretory type endometrium with exogenous hormone effect and cystic change. ?? See comment. Comment: ? Sections of the endometrial biopsy show an overall secretory pattern. However, there are foci of glandular epithelium with subnuclear vacuolization suggestive of early secretory phase endometrium and other foci with complex glandular structures within which secretory material is apparent, indicative of mid secretory endometrium. Scattered cystic glands are identified, suggestive of an underlying hyperplasia. Also present are areas of marked decidualization of the stroma with inactive glands consistent with exogenous hormone effect. This case was shown at intradepartmental consultation conference on 04/04/01. Document reviewed and electronically signed by: Nicole Hester MD Report ??Date: 04/04/2001 16:08 By the signature above, the attending physician certifies that he/she has personally conducted a gross and/or microscopic examination of the described specimens and rendered or confirmed the above diagnosis. Specimen(s) Received: ? Endometrium Clinical History: ? Abnormal menses 03/08-03/21; now on Provera Gross Description: ? Received in formalin labelled Santos and endo bx is a 2.5 x 2.5 x 1.0 cm aggregate of multiple pagan-brown slightly lobular to red-brown and hemorrhagic cylindrical soft tissue fragments. ??The specimen is entirely submitted as (A1) and (A2). ??(Delonte Myrick/lupe End of Report [facility] 03/31/2001 04/03/2001 8:4 6 EST Roya Aguilar MD PATHOLOGY ORDERABLES [facility] [address] [place] [address] documented in this encounter Visit Diagnoses Not on filedocumented in this encounter Care Teams Data Warehouse Architect Relationship Specialty Start Date End Date Unknown, Provider, PCP - General 01/08/09 documented as of this encounter
--- OUTSIDE RECORDS SUMMARY | 2023-10-06 08:32 | XMS_ITS | Encounter Summary ---
Author Organization [facility] Address [address] [place] [address] Care Team Providers Care Cloth Doffer Name Role Phone Unknown, Provider Primary Care Provider [phone] Encounter Details Date Type Department Care Team (Late st Contact Info) Description 10/14/2022 Lab Requisition [facility] [address] [place] [address] Outr Resulting Lab, Provider Social History Tobacco [...] Priority Date/Time Associated Diagnosis Comments CORTISOL, STIMULATION 30 MINUTE Routine 10/14/2022 7:50 EDT documented in this encounter Results * CORTISOL, STIMULATION 30 MINUTE (10/14/2022 7:50 EDT) Cortisol Stimulation, 30 min. 24 See Note ug/dL 10/14/2022 20:23 EDT [facility] Comment: NOTE: Expected Ranges for ACTH (Cortisol) Stimulation Test: Peak Concentrations at 30 - 60 minutes Minimal response: ??A cortisol value of >=18 ug/dL at the Baseline, 30 min, or 60 min sample is consistent with normal adrenal function. The results of this assay can be falsley elevated due to the consumption of Biotin. Blood VENOUS BLOOD / Unknown 10/14/2022 7:50 EDT 10/14/2022 19:35 EDT Provider Outr Resulting Lab CHEMISTRY & BLOOD GAS ORDERABLES Performing Organization Address City/State/[facility] Co de Phone Number [facility] [address] [place] [address] documented in this encounter Visit Diagnoses Not on filedocumented in this encounter Care Teams Cloth Doffer Relationship Specialty Start Date End Date Unknown, Provider, PCP - General 01/08/09 documented as of this encounter
--- OUTSIDE RECORDS SUMMARY | 2023-10-06 08:32 | XMS_ITS | Clinical Summary ---
Author Organization [facility] Address [facility] [place] [address] Care Team Providers Care Air Conditioning Mechanic Name Role Phone Unavailable Primary Care Provider Unavailabl e Social History Tobacco Use Types Packs/Day Years Used Date Smoking Tobacco: Never Assessed Sex and Gender Information Value Date Recorded Sex Assigned at Not on file Gender Identity Not on file Sexual Orientation Not on file Plan of Treatment Health Maintenance Due Date Last Done Comments CT Colonography 1955 Colonoscopy 1955 Colorectal Cancer Screening 1955 FIT DNA 1955 FIT 1955 Sigmoidoscopy (10 year) with FIT yearly 1955 Sigmoidoscopy 1955 Hepatitis C Screening 06/14/1971 Tdap adult 1972 Tetanus vaccine 1972 Breast Cancer Share Decision Needed 1993 Breast Cancer screening 1993 Zoster vaccine (1 of 2) 06/14/2003 Advance Directive 2008 Bone Density Scan 2018 Pneumoccocal Vaccine: 65+ (1 of 1 - PCV) 2018 Covid-19 Vaccine (1 - 2022-24 season) 2022 Influenza (Flu) vaccine (1 o f 1 - Influenza standard series) 10/16/2023
--- OUTSIDE RECORDS SUMMARY | 2023-10-06 08:32 | XMS_ITS | Encounter Summary ---
Author Organization [facility] Address [address] [place] [address] Care Team Providers Care Spool Fixer Name Role Phone Unknown, Provider Primary Care Provider [phone] Encounter Details Date Type Department Care Team (Late st Contact Info) Description 03/30/2016 Results Only [facility] [phone] Cristine Munson MD [address] [place] [phone] Social History Tobacco Use Types Packs/Day Years [...] Diagnosis Comments PAP TEST- RESULT ONLY Routine 03/30/2016 0:00 EST documented in this encounter Results * PAP TEST- RESULT ONLY (03/30/2016 0:00 EST) Pathology Report: CYTOPATHOLOGY REPORT Reports generated via electronic interface contain original data; however they are lacking the format of the original report. Caution should be taken when reading/interpret ing unformatted reports. Name: ? RANDALLCRISTINE ? Accession #: ? [id number] : ? 1955 (Age: 60) ??F ?Collect Date: ? 03/30/2016 Location: ? [facility] ? Receive Date: ? 04/01/2016 Provider: ?CRISTINE MUNSON MD Copy to: ? Specimen/Source: ?Pap Test, Endocervix, ThinPrep Imaging System with manual evaluation Last Menstrual Period: ? Many years ago Hormonal/Contrace ptive Status: ? None ? SPECIMEN ADEQUACY ? Unsatisfactory for Evaluation, - insufficient numbers of squamous epithelial cells (less than 10% of expected cellularity) - sample preparation compromised by excessive inflammation GENERAL CATEGORIZATION ? Specimen processed and examined, but unsatisfactory for evaluation of epithelial abnormality. ??Recommend repeat Pap test in 2-4 months as stated in ASCCP's 2012 Updated Consensus Guidelines. ? Document reviewed and electronically signed by: ? MAGNOLIA Means([facility]) ? Report Date: ??04/05/2016 13:21 End of Report [facility] 03/30/2016 04/01/2016 Cristine Munson MD PATHOLOGY ORDERABLES [facility] [address] [place] [address] documented in this encounter Visit Diagnoses Not on filedocumented in this encounter Care Teams Spool Fixer Relationship Specialty Start Date End Date Unknown, Provider, PCP - General 01/08/09 documented as of this encounter
--- OUTSIDE RECORDS SUMMARY | 2023-10-06 08:32 | XMS_ITS | Encounter Summary ---
Author Organization [facility] Address [address] [place] [address] Care Team Providers Care Hemodialysis Lab Technician Name Role Phone Unknown, Provider Primary Care Provider Encounter Details Date Type Department Care Team (Late st Contact Info) Description 11/26/2011 Results Only [facility] [address] [place], [place] [phone] Cristine Chamberlain MD [address] [place] [phone] Social History Tobacco Use Types Packs/Day Years [...] Diagnosis Comments PAP TEST- RESULT ONLY Routine 11/26/2011 0:00 EDT documented in this encounter Results * PAP TEST- RESULT ONLY (11/26/2011 0:00 EDT) Pathology Report: CYTOPATHOLOGY REPORT Reports generated via electronic interface contain original data; however they are lacking the format of the original report. Caution should be taken when reading/interpreti ng unformatted reports. Name: ? CRISTINE PEREIRA ? Accession #: ? [id number] ? : ? 1955 (Age: 56) ??F ?Collect Date: ? 11/26/2011 ? Location: ? [facility] ? Receive Date: ? 11/30/2011 ? Provider: CRISTINE CHAMBERLAIN MD Copy to: ? Final Report SPECIMEN ADEQUACY ? Satisfactory for Evaluation - assessment of transformation zone component not applicable ( e.g. atrophy, vaginal sample, hysterectomy) - scant squamous epithelial component secondary to excessive inflammation GENERAL CATEGORIZATION ? Negative for Intraepithelial Lesion or Malignancy ?? Last Menstural Period: 2 yrs Specimen/Source: ??Pap Test, Source Not Provided, [employer] Imaging System with manual evaluation Document reviewed and electronically signed by: ? ARIEL Meza(ASCP) ? Report ??Date: 12/02/2011 13:19 HPV with Pap Test ? Date Ordered: ? 12/02/2011 ? Status: ?? Signed Out ?Date Complete: ? 12/06/2011 ? By: ??System Interface ? Date Reported: ? 12/06/2011 ? Interpretation RESULT: Negative for HPV. No E6 or E7 mRNA is detected from HPV types 16,18,31,33,35, 39,45,51,52,56,58, 59,66, and 68 by cloud systems architect mediated amplification. Comments Document reviewed and electronically signed by: ? System Interface ? Report date: 12/06/2011 By the signature above, the attending physician certifies that he/she has personally conducted a gross and/or microscopic examination of the described specimens and rendered or confirmed the above diagnosis. End of Report [facility] 11/26/2011 11/30/2011 Cristine Chamberlain MD PATHOLOGY ORDERABLES Performing Organization Address City/State/[facility] Co de Phone Number [facility] [address] [place] [address] documented in this encounter Visit Diagnoses Not on filedocumented in this encounter Care Teams Hemodialysis Lab Technician Relationship Specialty Start Date End Date Unknown, Provider, PCP - General 01/08/09 documented as of this encounter
--- OUTSIDE RECORDS SUMMARY | 2023-10-06 08:32 | XMS_ITS | Encounter Summary ---
Author Organization [facility] Address [address] [place] [address] Care Team Providers Care Ice Guard Tester Name Role Phone Unknown, Provider Primary Care Provider [phone] Encounter Details Date Type Department Care Team (Late st Contact Info) Description 12/26/2002 Results Only [facility] [address] [address] Cristine Chamberlain MD [address] [place] [phone] Social History Tobacco Use Types Packs/Day Years Used Date Smoking Tobacco: Never Assessed Sex and Gender Information Value Date Recorded Sex Assigned at Not on file Gender Identity Not on file Sexual Orientation Not on file documented as of this encounter Plan of Treatment Not on file documented as of this encounter Procedures Procedure Name Priority Date/Time Associated Diagnosis Comments CYTOPATHOLOGY Routine 12/26/2002 0:00 EST documented in this encounter Results * CYTOPATHOLOGY (12/26/2002 0:00 EST) Pathology Report: CYTOPATHOLOGY REPORT Reports generated via electronic interface contain original data; however they are lacking the format of the original report. Caution should be taken when reading/interpreti ng unformatted reports. Name: ? RANDALL CRISTINE ? Accession #: ? [id number] : ? 1955 (Age: 47) ??F ?Collect Date: ? 12/26/2002 Location: ? [facility] ? Receive Date: ? 12/28/2002 Provider: ?CRISTINE CHAMBERLAIN MD Copy to: ?MLEINDA REID MD ? Specimen/Source: ?ThinPrep Pap Test, Endocervix Last Menstrual Period: ? Hormonal/Contracep tive Status: ? Yes: Cyclic progesterone Other: ? HPVA - HPV testing requested if ASC-US on the current ThinPrep Pap test. ? SPECIMEN ADEQUACY ? Satisfactory for Evaluation - transformation zone component present GENERAL CATEGORIZATION ? Negative for Intraepithelial Lesion or Malignancy ? Document reviewed and electronically signed by: ? MAGNOLIA Coronel(ASCP) ? Report Date: ??01/04/2003 09:34 End of Report [facility] 12/26/2002 12/28/2002 Cristine Chamberlain MD PATHOLOGY ORDERABLES Performing Organization Address City/State/[facility] Co de Phone Number [facility] [address] [place] [address] documented in this encounter Visit Diagnoses Not on filedocumented in this encounter Care Teams Ice Guard Tester Relationship Specialty Start Date End Date Unknown, Provider, PCP - General 01/08/09 documented as of this encounter
[2023-10-06 14:53] LABS: HCT 39.3 % (36.0-46.0); HGB 13.3 g/dL (11.2-15.7); MCH 31.9 pg (27.0-33.0); MCHC 33.8 % (32.0-36.0); MCV 94 fL (80-95); MPV 10.3 fL (8.0-11.0); Platelet Count 353 10^3/uL (130-400); RBC 4.17 10^6/uL (3.93-5.22); RDW 12.5 % (11.7-14.6); RDW-SD 43.6 fL; WBC 4.69 10^3/uL (4.4-10.8)
[2023-10-06 16:05] LABS: ALT 28 U/L (14-59); AST 18 U/L (15-37); Albumin 3.8 g/dL (3.4-5.0); Alkaline Phosphatase 90 U/L (46-116); BUN 14 mg/dL (7-18); Bilirubin, Total 0.54 mg/dL (0.2-1.0); CREATININE 0.6 mg/dL (0.55-1.02); Calcium 9.1 mg/dL (8.5-10.1); Calculated LDL 76 mg/dL (<100); Chloride 97 mmol/L (98-107); Cholesterol 194 mg/dL (<200); Glucose 89 mg/dL (74-106); HDL Cholesterol 106 mg/dL (40-60); Potassium 4.5 mmol/L (3.5-5.1); Sodium 134 mmol/L (136-145); Triglyceride 62 mg/dL (<150); Vitamin D 25 Total 25.7 ng/mL (30-100)
== END 2023-10-06 08:31 | disposition home or self-care (01) ==
LOC: NCHCN 08:30
PROVIDERS: PCP Family Medicine; Visit Provider Family Medicine
DX: Z00.00 Encounter for general adult medical examination without abnormal findings (principal); M81.0 Age-related osteoporosis without current pathological fracture
CPT/HCPCS: 80053; 80061; 82306; 85027

== ENCOUNTER 2024-10-09 18:00 | Outpatient (REF) | payer MEDICARE, SELFPAY ==
[2024-10-09 16:46] LABS: HCT 38.9 % (36.0-46.0); HGB 13.2 g/dL (11.2-15.7); MCH 30.7 pg (27.0-33.0); MCHC 33.9 % (32.0-36.0); MCV 91 fL (80-95); MPV 10.3 fL (8.0-11.0); Platelet Count 370 10^3/uL (130-400); RBC 4.30 10^6/uL (3.93-5.22); RDW 12.4 % (11.7-14.6); RDW-SD 41.1 fL; WBC 4.47 10^3/uL (4.4-10.8)
[2024-10-09 17:31] LABS: ALT 23 U/L (14-59); AST 18 U/L (15-37); Albumin 3.9 g/dL (3.4-5.0); Alkaline Phosphatase 81 U/L (46-116); Anion Gap 8.0 mmol/L (3-11); BUN 5 mg/dL (7-18); Bilirubin, Total 0.7 mg/dL (0.2-1.0); CO2 28.0 mmol/L (21.0-32.0); Calcium 9.0 mg/dL (8.5-10.1); Calculated LDL 88 mg/dL (<100); Chloride 96 mmol/L (98-107); Cholesterol 207 mg/dL (<200); Estimated GFR 105.75 (mL/min/1.73m2); Glucose 94 mg/dL (74-106); HDL Cholesterol 101 mg/dL (>or=50); Potassium 4.8 mmol/L (3.5-5.1); Sodium 132 mmol/L (136-145); Total Protein 6.9 g/dL (6.4-8.2); Triglyceride 90 mg/dL (<150); Vitamin D 25 Total 36 ng/mL (30-100)
== END 2024-10-09 18:01 | disposition home or self-care (01) ==
LOC: NCHCN 18:00
PROVIDERS: Urology; PCP Family Medicine; Visit Provider Family Medicine
DX: R03.0 Elevated blood-pressure reading, without diagnosis of hypertension (principal); E55.9 Vitamin D deficiency, unspecified
CPT/HCPCS: 80053; 80061; 82306; 85027

== ENCOUNTER 2024-10-24 02:36 | Outpatient (CLI) | payer MEDICARE, SELFPAY ==
--- NOTE | 2024-10-24 08:26 | DI.MAMMO_ITS ---
Exam(s) MAMMO SCREENING EXAM: MAMMO SCREENING CLINICAL HISTORY: SCREENING MAMMO Z12.31 TECHNIQUE: Mammograms were interpreted according to the usual protocol including computer analysis with CAD system, tomosynthesis and C-view imaging. COMPARISON: 2015 through 2022 FINDINGS: The breasts are composed of scattered fibroglandular densities, Breast Density category B. No suspicious masses or suspicious microcalcifications are seen. No skin thickening or abnormal axillary lymph nodes are seen. There has been no significant change from prior exams. IMPRESSION: BI-RADS Category 1, Negative mammogram Yearly screening mammography is recommended. Breast Density - Category B - There are scattered areas of fibroglandular density. Breast density Category C or D implies that the patient has dense breast tissue. Dense breast tissue can make it harder to find cancer on a mammogram. Dense breast tissue is also associated with an increased risk of breast cancer. This information about the result of the mammogram report was provided to the patient to raise their awareness. Use this report when you speak with the patient about their risks for breast cancer, which includes their family history. At that time, you may recommend additional screening tests (Ultrasound or MRI) as these tests may add significant information. A negative radiographic report should not delay biopsy if a dominant or clinically suspicious mass is present. Up to ten percent of cancers are not identified on mammography. A negative report may reinforce clinical impression. Adenosis and dense breasts may obscure an underlying neoplasm. False positive reports average 6 to 10%. Patient will receive a letter notifying them of these results.
== END 2024-10-24 02:56 ==
PROVIDERS: PCP Family Medicine; Visit Provider Family Medicine
DX: Z12.31 Encounter for screening mammogram for malignant neoplasm of breast (principal); R92.323 Mammographic fibroglandular density, bilateral breasts
CPT/HCPCS: 77063; 77067